=== PATIENT | male | born 1950 | race Caucasian/White ===

== ENCOUNTER 2016-08-05 19:16 | Inpatient (IN) | payer OTHER ==
[~2016-08-05] VITALS: Ht 175.3 cm; Wt 86.5 kg
[~2016-08-05 19:16] MED LIST: ALFU10TA2 PO; CARB0.5D16 EACH EYE; IBUP600 PO; LISI10TA PO; TIMO0.2525 LEFT EYE; XALA0.00 RIGHT EYE; XANA0.5T PO
[2016-08-05 19:22] VITALS: BP 167/86; PULSE 66; RESP 16; TEMP 97.5; O2SAT 98
[2016-08-05 19:54] VITALS: BP 168/92; PULSE 61; RESP 18; O2SAT 98
[2016-08-05 19:55] VITALS: O2SAT 98
[2016-08-05] MEDS ORDERED: SODIUM CHLOR 0.9% 1000 ML INJ 1,000 ML IV ONE (19:56)
[2016-08-05 20:03] VITALS: BP 140/78; PULSE 68; RESP 18; O2SAT 99
--- NOTE | 2016-08-05 20:06 | PD ---
HPI Chief Complaint: Stroke Alert Time Seen by Provider: 19:56 Travel History International Travel<30 days: No Contact w/Intl Traveler<30days: No Traveled to known affect area: No History of Present Illness HPI The patient is a 65 year old male who presents to the [facility] emergency department with a history of reportedly sitting and reading his Bible at approximate 5:45 PM when he noticed that he felt lightheaded with blurry vision mainly involving the right eye, right-sided numbness and tingling to his face and right-sided upper extremity aching associated with numbness. He denies having any one-sided weakness, however he does report having generalized weakness. He denies having any chest pain, chest pressure. He does report having shortness of breath. He reports that he does have a history of COPD. He denies any history of cardiac arrhythmia, myocardial infarction or congestive heart failure. He denies taking any blood thinners. He denies being on any aspirin daily. The patient does have a history of high blood pressure. The patient additionally reports that he has glaucoma and macular degeneration. He reports that his right eye vision is worse on the right compared to the left at baseline. The patient incidentally also reports that over the last 3-4 weeks he has had increasing difficulty urinating. The patient reports that he has a history of prostate cancer status post radiation therapy 3 years ago with difficulty urinating since then requiring him to self catheter 1 time per day. He reports that over the last 3-4 weeks he has not been able to introduce the catheter. He has been urinating frequently, therefore not sleeping well at night. The patient denies any recent fevers, cough, congestion, neck pain, abdominal pain, vomiting, diarrhea, double vision , difficulty with word finding ability, facial droop, or vertigo. The patient reports that the symptoms have improved since the onset. [facility] Past Medical History Narrative Medical The patient's past medical history is significant for hypertension and most sleep apnea, anxiety disorder, COPD, history of migraine headaches, history of prostate cancer status post radiation therapy 3 years ago, history of macular degeneration and glaucoma Arthritis: Yes Blood Disorders: No Anxiety: Yes Depression: Yes Cancer: Yes (PROSTATE) Cardiovascular Problems: Yes Chest Pain: Yes Diabetes: No Diminished Hearing: No Endocrine: No Gastrointestinal Disorders: Yes GERD: Yes Glaucoma: Yes Genitourinary: No Hepatitis: No Hiatal Hernia: No Hypertension: Yes Immune Disorder: No Implanted Vascular Access Dvce: Yes Medical other: Yes (macular degeneration) Musculoskeletal: No Neurologic: Yes Psychiatric: Yes (ANXIETY) Reproductive: No Respiratory: No Immunizations Current: Yes Migraines: Yes Radiation Therapy: Yes (PROSTATE) Thyroid Disease: No Past Surgical History Narrative Surgical The patient's past surgical history is significant for left leg ORIF, history of C-spine fusion, right hip replacement, cholecystectomy. Abdominal Surgery: Yes (MOE) Body Medical Devices: PLATE IN C SPINE, JULEE LLE Cholecystectomy: Yes Joint Replacement: Yes (RIGHT TOTAL HIP) Other Surgery: Yes Social History Alcohol Use: Yes (2 DRINKS/WK) Tobacco Use: Yes (1/2 PPD) Substance Use: No Allergies-Medications (Allergen,Severity, Reaction): Coded Allergies: Codeine (Verified Allergy, Severe, RASH/ITCHING, 08/05/16) Reported Meds & Prescriptions Reported Meds & Active Scripts Active Reported Timolol Maleate 0.25 % Brii 1 Drop LEFT EYE DAILY Lisinopril/Hctz 10 mg/12.5 mg 10 mg/12.5 mg Tab 1 Tab PO DAILY Tears Naturale (Artificial Tears) 15 Ml Soln 1 Drop EACH EYE DIRECTED Alfuzosin Hcl Er (Alfuzosin HCl) 10 Mg Tab 10 Mg PO DAILY Xalatan (Latanoprost) 0.005 % Brii 1 Drop RIGHT EYE HS Xanax 0.5 mg (Alprazolam) Alprazolam 0.5 mg Tab 1 Tab PO HS PRN Review of Systems Except as stated in HPI: all other systems reviewed are Neg General / Constitutional: No: Fever Eyes: No: Visual changes HENT: No: Headaches Cardiovascular: No: Chest Pain or Discomfort Respiratory: No: Shortness of Breath Gastrointestinal: No: Abdominal Pain Genitourinary: No: Dysuria Musculoskeletal: No: Pain Skin: No Rash Neurologic: No: Weakness Psychiatric: No: Depression Endocrine: No: Polydipsia Hematologic/Lymphatic: No: Easy Bruising Physical Exam Narrative General: The patient is a well-developed well-nourished male in no acute distress. Head and Neck exam: Head is normocephalic atraumatic. Eyes: EOMI, pupils are equal round and reactive to light. Nose: Midline septum with pink mucous membranes Mouth: Dentition unremarkable. Moist mucus membranes. Posterior oropharynx is not erythematous. No tonsillar hypertrophy. Uvula midline. Airway patent. Neck: No palpable lymphadenopathy. No nuchal rigidity. No thyromegaly. Cardiovascular: Regular rate and rhythm without murmurs, gallops, or rubs. No pulse deficit to the extremities and simultaneous auscultation and palpation of his radial artery. Lungs: Clear to auscultation bilaterally. No wheezes, rhonchi, or rales. Abdomen: Soft, without tenderness to palpation in all 4 quadrants of the abdomen. No guarding, rebound, or rigidity. Normal bowel sounds are audible. No tenderness on palpation of McBurney's point. Negative [place] sign. Extremities: No clubbing, cyanosis, or edema. 2+ pulses in all 4 extremities. Back: No spinous process tenderness to palpation. No costovertebral angle tenderness to palpation. Neurologic Exam: Cranial nerves II through XII are intact except for the patient's reported sensation of numbness to the right side of the face, and numbness to the right arm in a glove distribution. Strength is 5/5 in all 4 extremities. No dysdiadochokinesis. Good finger to nose and Heel to patel bilaterally. Skin Exam: No rash noted. Intact skin that is warm and dry. Data Data Last Documented VS Vital Signs Date Time Temp Pulse Resp B/P Pulse Ox O2 Delivery O2 Flow Rate FiO2 08/05/16 21:00 59 16 158/81 98 Room Air 08/05/16 19:55 21 08/05/16 19:22 97.5 Orders Diet Npo (08/06/16 Breakfast) Activity Bed Rest (08/05/16 ) Electrocardiogram (08/05/16 ) I-Stat Creatinine (08/05/16 19:56) I-Stat Profile (08/05/16 19:56) Prothrombin Time / Inr (Pt) (08/05/16 19:56) Act Partial Throm Time (Ptt) (08/05/16 19:56) Complete Blood Count With Diff (08/05/16 19:56) Fibrinogen (08/05/16 19:56) Creatine Kinase (Cpk) (08/05/16 19:56) Troponin I (08/05/16 19:56) Ua Includes Microscopic (08/05/16 19:56) Drug Screen, Random Urine (08/05/16 19:56) Type And Screen (08/05/16 19:56) Ct Brain W/O Iv Contrast(Rout) (08/05/16 ) Chest, Single Ap (08/05/16 ) Consult Neurology (08/05/16 ) Blood Glucose (08/05/16 19:56) Ecg Monitoring (08/05/16 19:56) Neuro Checks Q2HX12,Q4H (08/05/16 19:56) Nursing Bedside Swallow Assess .ONCE (08/05/16 19:56) Iv Access Insert/Monitor (08/05/16 19:56) NPO (08/05/16 19:56) Oximetry (08/05/16 19:56) Oxygen Administration (08/05/16 19:56) Sodium Chlor 0.9% 1000 Ml Inj (Ns 1000 M (08/05/16 19:56) Resp Oxygen Eren C Titrat 1-4 L (08/05/16 19:56) Cath For Specimen (08/05/16 19:56) (Hub Use Only)Inp Phy Cons/Ref (08/05/16 ) Mri Brain W/O Contrast (08/05/16 20:18) Mra Brain W/O Contrast (Cow) (08/05/16 20:18) Mra Carotids W Contrast (08/05/16 20:18) Aspirin (Aspirin) (08/05/16 21:30) Gadodiamide Pf Inj (Omniscan Pf Inj) (08/05/16 21:48) Admit Order (Ed Use Only) (08/05/16 22:16) Labs Laboratory Tests Test 08/05/16 08/05/16 20:00 21:45 White Blood Count 5.8 TH/MM3 Red Blood Count 4.42 MIL/MM3 Hemoglobin 13.9 GM/DL Bedside Hemoglobin 13.6 G/DL Hematocrit 38.6 % Bedside Hematocrit 40.0 % Mean Corpuscular Volume 87.4 FL Mean Corpuscular Hemoglobin 31.4 PG Mean Corpuscular Hemoglobin 35.9 % Concent Red Cell Distribution Width 12.4 % Platelet Count 188 TH/MM3 Mean Platelet Volume 7.8 FL Neutrophils (%) (Auto) 60.0 % Lymphocytes (%) (Auto) 29.5 % Monocytes (%) (Auto) 7.8 % Eosinophils (%) (Auto) 2.0 % Basophils (%) (Auto) 0.7 % Neutrophils # (Auto) 3.5 TH/MM3 Lymphocytes # (Auto) 1.7 TH/MM3 Monocytes # (Auto) 0.4 TH/MM3 Eosinophils # (Auto) 0.1 TH/MM3 Basophils # (Auto) 0.0 TH/MM3 CBC Comment DIFF FINAL Differential Comment Prothrombin Time 10.1 SEC Prothromb Time International 0.9 RATIO Ratio Activated Partial 25.1 SEC Thromboplast Time Fibrinogen 261 mg/dL Bedside Sodium 135 MMOL/L Bedside Potassium 3.9 MMOL/L Bedside Chloride 97 MMOL/L Bedside Blood Urea Nitrogen 19 MG/DL Bedside Creatinine 0.8 MG/DL Bedside Glucose 108 MG/DL Total Creatine Kinase 104 U/L Troponin I LESS THAN 0.02 NG/ML Blood Type A POSITIVE Antibody Screen NEGATIVE Urine Color LIGHT-YELLOW Urine Turbidity CLEAR Urine pH 7.0 Urine Specific [place] 1.007 Urine Protein NEG mg/dL Urine Glucose (UA) NEG mg/dL Urine Ketones NEG mg/dL Urine Occult Blood NEG Urine Nitrite NEG Urine Bilirubin NEG Urine Urobilinogen LESS THAN 2.0 MG/DL Urine Leukocyte Esterase NEG Urine RBC 1 /hpf Urine WBC 1 /hpf Urine Opiates Screen NEG Urine Barbiturates Screen NEG Urine Amphetamines Screen NEG Urine Benzodiazepines Screen NEG Urine Cocaine Screen NEG Urine Cannabinoids Screen NEG MDM Medical Screen Exam Complete: Yes Emergency Medical Condition: Yes Medical Record Reviewed: Yes EKG Prior to Arrival: Yes Differential Diagnosis TIA, versus CVA, versus peripheral neuropathy, versus paresthesias, versus anxiety disorder, versus intracranial mass Narrative Course During the course of the patients emergency department visit, the patients history, examination, and differential diagnosis were reviewed with the patient. The patient had IV access obtained and blood work sent for analysis. The patient was placed on a pr specialist with oximetry and blood pressure monitoring. An EKG was done on arrival. The patient's EKG shows a sinus rhythm with a first-degree AV block, heart rate is 62, QRS duration 95 ms, QTC [address] segment elevation or depression. The patient's blood sugar is 99. The patient was initially provided normal saline at 70 mL per hour. The patient 's head of the bed was placed flat. A CT scan of the brain was ordered. A stroke alert was called although at this time the patient reports that the symptoms are improving and at this point and the NIH score is a 1. The patients laboratory studies were reviewed and remarkable for i-STAT with creatinine reveals a sodium of 135, potassium 3.9, chloride 97, BUN 19, glucose 108, creatinine 0.8, hemoglobin 13.6. The patient was reexamined again when he came back from CT. The patient reports that his symptoms of numbness in the right side of the face are still present, as well as the numbness in the right lateral forearm. He reports that it seems to be less than on and the hand. Radiology studies were reviewed and remarkable for CT scan of the brain showed no acute abnormality. I spoke to again regarding this patient's case. He recommended that a stat MRI of the brain be ordered along with an MRA and an MRA of the neck. The patient's MRI of the brain was read as negative by the reading radiologist. I spoke to regarding this. He recommended that the patient receive an aspirin. Later the MR a of the carotids came back as showing soft tissue plaque with focal high grade stenosis involving the proximal right common carotid artery and there appears to be narrowing at the origin of the right vertebral artery. MRA of the brain showed 3 saccular aneurysms involving the distal right internal carotid artery. I spoke to the neurologist regarding these findings. He recommended that the patient additionally be given heparin 5000 units subcutaneous, and Plavix 75 mg by mouth 1. I reexamine the patient intermittently throughout his hospital course and the patient had no recurrence of symptoms. The patient was made aware of his findings. He is agreeable with the plan to proceed with admission. The patients results were discussed with the patient, including the plan of care. I explained that further testing and/ or monitoring is indicated based on the patients history, examination, and/ or laboratory findings. Therefore, I recommended admission for additional evaluation. The patient expressed understanding and was agreeable with this plan. The patient was admitted to the hospital in guarded condition and [facility] Stroke Alert NIHSS NIH Stroke Scale Result: 1 NIHSS Time Completed: 20:04 Physician Communication Physician Communication I spoke to Dr. Hoffman regarding this patient's case at approximately 8:[address] scan of the brain was negative. The patient's initial symptoms on arrival are an NIH score of 1 and the patient reports that since arriving some of the numbness in his right hand has improved. Therefore, Dr. Hoffman recommends an urgent MRI be done to further assess the patient's symptoms. He recommends serial exams and if the patient's symptoms again worsen, further discussion with him immediately. The patient's case was discussed with Dr. Hoffman who did agree to admit the patient for further evaluation and treatment at this time. Diagnosis Diagnosis: Primary Impression: TIA (transient ischemic attack) Qualified Code: G45.9 - Transient cerebral ischemia, unspecified type Additional Impressions: Carotid stenosis Qualified Code: I65.21 - Stenosis of right carotid artery Brain aneurysm Vertebral artery stenosis Qualified Code: I65.01 - Vertebral artery stenosis, right Admitting Physician Requests: it Anna Thompson MD Aug 05, 2016 20:06
[2016-08-05 20:09] LABS: AUTOMATED NEUTROPHIL # 3.5 TH/MM3 (1.8-7.7); BASOPHIL % 0.7 % (0.0-2.0); EOSINOPHIL # 0.1 TH/MM3 (0-0.4); HEMATOCRIT 38.6 % (39.0-51.0); HEMO FLAGS DIFF FINAL; I-STAT POTASSIUM 3.9 MMOL/L (3.5-4.9); I-STAT SODIUM 135 MMOL/L (138-146); LYMPH % 29.5 % (9.0-44.0); LYMPHOCYTE # 1.7 TH/MM3 (1.0-4.8); MEAN CELL VOLUME 87.4 FL (80.0-100.0); MEAN CORPUSCULAR HEMOGLOBIN 31.4 PG (27.0-34.0); MEAN CORPUSCULAR HGB CONC 35.9 % (32.0-36.0); MONO % 7.8 % (0.0-8.0); PLATELET COUNT 188 TH/MM3 (150-450); RED BLOOD COUNT 4.42 MIL/MM3 (4.50-5.90); RED CELL DISTRIBUTION WIDTH 12.4 % (11.6-17.2); WHITE BLOOD COUNT 5.8 TH/MM3 (4.0-11.0)
--- NOTE | 2016-08-05 20:13 | RADRPT ---
EXAM DATE/TIME: 08/05/2016 20:02 CORRECTION Corrected on: August 05, 2016; [facility] COMPARISON: No previous studies available for comparison. INDICATIONS : Right sided facial weakness. RADIATION DOSE: 50.07 CTDIvol (mGy) This report was called by Jennifer Thompson at 8: 20pm. MEDICAL HISTORY : Hypertension. Carcinoma, prostate. SURGICAL HISTORY : Fusion, cervical. ENCOUNTER: Initial ACUITY: 1 day PAIN SCALE: 0/10 LOCATION: cranial TECHNIQUE: Multiple contiguous axial images were obtained of the head. Using automated exposure control and adj ustment of the mA and/or kV according to patient size, radiation dose was kept as low as reasonably a chievable to obtain optimal diagnostic quality images. FINDINGS: CEREBRUM: The ventricles are normal for age. No evidence of midline shift, mass lesion, hemorrhage or acute in farction. No extra-axial fluid collections are seen. POSTERIOR FOSSA: The cerebellum and brainstem are intact. The 4th ventricle is midline. The cerebellopontine angle i s unremarkable. EXTRACRANIAL: The visualized portion of the orbits is intact. SKULL: The calvaria is intact. No evidence of skull fracture. CONCLUSION: No acute intracranial disease. Loi Rodriguez MD on August 05, 2016 at 20:10 Board Certified Radiologist. This report was verified electronically. Loi Rodriguez MD on August 05, 2016 at 20:26 Board Certified Radiologist. This report was verified electronically.
[2016-08-05 20:27] LABS: APTT (PATIENT) 25.1 SEC (24.3-30.1); INTERNATIONAL NORMALIZED RATIO 0.9 RATIO; PROTHROMBIN TIME - PATIENT 10.1 SEC (9.8-11.6)
[2016-08-05 20:33] LABS: CREATINE KINASE 104 U/L (39-308)
--- NOTE | 2016-08-05 20:44 | RADRPT ---
EXAM DATE/TIME: 08/05/2016 20:34 [facility] COMPARISON: No previous studies available for comparison. INDICATIONS : Stroke alert. MEDICAL HISTORY : Hypertension. Carcinoma, prostate SURGICAL HISTORY : Fusion, cervical ENCOUNTER: Initial ACUITY: 1 day PAIN SCORE: 0/10 LOCATION: Bilateral chest FINDINGS: A single view of the chest demonstrates the lungs to be symmetrically aerated without evidence of mas s, infiltrate or effusion. The cardiomediastinal contours are unremarkable. Osseous structures are intact. CONCLUSION: No acute disease. Loi Rodriguez MD on August 05, 2016 at 20:42 Board Certified Radiologist. This report was verified electronically.
[2016-08-05 21:00] VITALS: BP 158/81; PULSE 59; RESP 16; O2SAT 98
[2016-08-05] MEDS ORDERED: ASPIRIN 325 MG TAB PO ONE (21:30)
--- NOTE | 2016-08-05 21:38 | RADRPT ---
EXAM DATE/TIME: 08/05/2016 20:48 [facility] COMPARISON: CT BRAIN W/O CONTRAST, August 05, 2016, 20:02. INDICATIONS : Stroke. Stroke alert. MEDICAL HISTORY : Hypertension. Carcinoma, prostate. SURGICAL HISTORY : Fusion, cervical. Right hip. ENCOUNTER: Subsequent ACUITY: 1 day PAIN SCORE: 3/10 LOCATION: cranial TECHNIQUE: Multiplanar, multisequence MRI of the brain was performed without contrast. FINDINGS: CEREBRUM: The ventricles are normal for age. No evidence of midline shift, mass lesion, hemorrhage or acute in farction. No extraaxial fluid collections are seen. The pituitary gland and suprasellar cistern are normal in configuration. WHITE MATTER: No significant signal abnormalities are seen in the white matter. POSTERIOR FOSSA: The cerebellum and brainstem are intact. The 4th ventricle is midline. The cerebellopontine angle is unremarkable. The cerebellar tonsils are normal in position. DIFFUSION IMAGING: No focal areas of restricted diffusion are seen. No evidence of acute infarction. EXTRACRANIAL: The visualized portions of the orbits and paranasal sinuses are unremarkable. CONCLUSION: Unremarkable MRI brain. Loi Rodriguez MD on August 05, 2016 at 21:34 Board Certified Radiologist. This report was verified electronically.
--- NOTE | 2016-08-05 21:43 | RADRPT ---
EXAM DATE/TIME: 08/05/2016 20:48 [facility] COMPARISON: No previous studies available for comparison. INDICATIONS : Stroke. Right side numbness. MEDICAL HISTORY : Hypertension. Carcinoma, prostate. SURGICAL HISTORY : Fusion, cervical. Right hip. ENCOUNTER: Subsequent ACUITY: 1 day PAIN SCORE: 3/10 LOCATION: cranial Please note a normal MRA of the brain does not entirely exclude the possibility of a small aneurysm, nor the possibility of distal intracranial vessel disease. TECHNIQUE: 3D time of flight MRA was performed. Source images, multiplanar STS MIP, and 3D volume MIP reconstru ctions were reviewed. FINDINGS: There is excellent visualization of the major intracranial arteries out to the second-order branch ve ssels. There is evidence of saccular aneurysm along the carotid terminus measuring 4 x 3 mm. There a lso appears to be 2 other smaller aneurysms along the undersurface of distal carotid one measuring 3 x 2 mm and the other measuring 2 x 2 mm. In the left middle cerebral artery, anterior cerebral arteri es and posterior cerebral arteries are unremarkable. Anterior commuting artery seen.. CONCLUSION: 1. 3 saccular aneurysms involving the distal right internal carotid artery as described above. Loi Rodriguez MD on August 05, 2016 at 21:36 Board Certified Radiologist. This report was verified electronically.
[2016-08-05] MEDS ORDERED: GADODIAMIDE PF 287 MG/ML 20 ML VIAL (for RAD MRI) IV ONE (21:48)
[2016-08-05 21:59] LABS: BLOOD, URINE NEG (NEG); GLUCOSE,URINE NEG (NEG); KETONE, URINE NEG (NEG); NITRITE,URINE NEG (NEG); URINE COLOR LIGHT-YELLOW (YELLW/STRAW)
--- NOTE | 2016-08-05 22:02 | RADRPT ---
EXAM DATE/TIME: 08/05/2016 20:48 [facility] COMPARISON: No previous studies available for comparison. INDICATIONS : Stroke. Right side numbness. CONTRAST: 20 cc Omniscan (gadodiamide) IV MEDICAL HISTORY : Hypertension. Carcinoma, prostate. SURGICAL HISTORY : Fusion, cervical. Right hip. ENCOUNTER: Subsequent ACUITY: 1 day PAIN SCORE: 3/10 LOCATION: neck Percent stenosis is calculated using the diameter of the stenotic region over the diameter of the nor mal distal internal carotid artery. TECHNIQUE: Bolus infused MRA of the extracranial circulation was performed using a neurovascular coil. Post pro cessing was performed including rotating subvolume maximum intensity projections of each carotid allan ry, rotating full volume maximum intensity projections of both carotid arteries, sagittal and coronal sliding thin slab reformations of each carotid artery, and left oblique sliding thin slab reformatio n through the aortic arch to include the origin of the arch branch vessels. FINDINGS: AORTIC ARCH: There is a three vessel origin of the great vessels from the aorta. No evidence of ostial narrowing. RIGHT CAROTID: There is soft tissue plaque with focal high-grade stenosis involving the right common carotid artery. The carotid bulb has a normal configuration without ulceration or narrowing. The internal carotid a rtery lumen is smooth without stenosis. The external carotid artery is intact. LEFT CAROTID: The common carotid artery is intact. The carotid bulb has a normal configuration without ulceration or narrowing. The internal carotid artery lumen is smooth without stenosis. The external carotid ar nabil is intact. VERTEBRALS: Left vertebral artery is normal. There does appear to be focal high-grade stenosis involving the righ t vertebral artery at its origin. CONCLUSION: 1. Soft tissue plaque with focal high-grade stenosis involving the proximal right common carotid allan ry. 2. There appears to be narrowing at the origin of the right vertebral artery Loi Rodriguez MD on August 05, 2016 at 21:55 Board Certified Radiologist. This report was verified electronically.
[2016-08-05 22:03] LABS: AMPHETAMINE, URINE NEG (NEG); BARBITURATES, URINE NEG (NEG); COCAINE, URINE NEG (NEG)
[2016-08-05] MEDS ORDERED: HEPARIN SODIUM - SQ 10,000 UNITS/ML VIAL SQ ONE (22:30)
[2016-08-05] MEDS ORDERED: CLOPIDOGREL 75 MG TAB PO ONE (22:30)
[2016-08-05 23:49] VITALS: BP 151/74; PULSE 58; RESP 16; O2SAT 98
[2016-08-06] VITALS (8 sets, daily range): BP systolic 130–160; BP diastolic 67–77; PULSE 53–61; RESP 17–20; TEMP 96.9–97.6; O2SAT 94–96
[2016-08-06] MEDS ORDERED: LABETALOL HCL 100 MG/20 ML VIAL IV PRN (00:30)
[2016-08-06] MEDS ORDERED: ENALAPRILAT 1.25 MG/ML VIAL IV PRN (00:30)
[2016-08-06] MEDS ORDERED: SODIUM CHLORIDE 0.9% FLUSH 5 ML FLUSH IV FLUSH PRN ×2 (00:30→10:45)
[2016-08-06] MEDS ORDERED: GLUCAGON 1 MG/ML VIAL OTHER PRN ×2 (00:30→10:45)
[2016-08-06] MEDS ORDERED: DEXTROSE 50% IN WATER 50 ML VIAL(D50) IV PUSH PRN ×2 (00:30→10:45)
--- NOTE | 2016-08-06 00:53 | HHI.HP ---
HPI Service [facility] Primary Care Physician [facility] Admission Diagnosis TIA Diagnoses: Chief Complaint: Right facial numbness with visual change Travel History International Travel<30 Days: No Contact w/Intl Traveler <30 Da: No Traveled to Known Affected Are: No History of Present Illness Written by Franca Argueta, acting as scribe for Dr. Hoffman on 08/06/16 at 01: 26. This is a 65-year-old male patient with past medical history which includes prostate cancer 3-4 years ago treated with radiation, hypertension, macular degeneration and glaucoma. Patient reports between 5:30 and 5:45pm on 08/05/2016 will he was sitting reading his Bible he began to feel right fascial numbness with burning. Patient also experienced blurring of his vision in his right eye and numbness/burning sensation to his right upper extremity. Patient endorses feeling lightheaded with mild chest discomfort during this episode. Patient reports the visual change, right upper extremity numbness/burning and lightheadedness and chest discomfort have spontaneously resolved. Patient does have continued mild right facial numbness. Patient denies focal weakness and there is no focal weakness on evaluation. Patient denies any recent fevers, cough, congestion, neck pain, abdominal pain, vomiting, diarrhea, double vision, difficulty with word finding ability, facial droop, or vertigo. Patient denies history of diabetes mellitus blood glucose on arrival was 108 Review of Systems Except as stated in HPI: all other systems reviewed are Neg Past Family Social History Past Medical History prostate cancer 3-4 years ago treated with radiation, hypertension, macular degeneration and glaucoma Past Surgical History Left leg surgery with hardware placement, right hip replacement, neck surgery C5 -C6 area and T1 Reported Medications Timolol Maleate 0.25 % Brii 1 Drop LEFT EYE DAILY Lisinopril/Hctz 10 mg/12.5 mg 10 mg/12.5 mg Tab 1 Tab PO DAILY Tears Naturale (Artificial Tears) 15 Ml Soln 1 Drop EACH EYE DIRECTED Alfuzosin Hcl Er (Alfuzosin HCl) 10 Mg Tab 10 Mg PO DAILY Xalatan (Latanoprost) 0.005 % Brii 1 Drop RIGHT EYE HS Xanax 0.5 mg (Alprazolam) Alprazolam 0.5 mg Tab 1 Tab PO HS PRN Allergies: Coded Allergies: Codeine (Verified Allergy, Severe, RASH/ITCHING, 08/05/16) Active Ordered Medications Current Medications Medications (Trade) Dose Ordered Sig/Daisy Route Start Time Stop Time Status Last Admin (NS 1000 ml Inj) 1,000 ml @ 70 mls/hr [id number] ONCE IV 08/05/16 19:56 08/06/16 10:13 08/05/16 20:05 Family History Father at 57 secondary to NH and CVA Mother at 88 secondary CHF Does have an aunt with diabetes Social History Patient denies EtOH use tobacco use or illicit drug use at this time Patient reports he quit smoking and drinking alcohol 3 years ago Physical Exam Vital Signs Vital Signs Date Time Temp Pulse Resp B/P Pulse Ox O2 Delivery O2 Flow Rate FiO2 08/05/16 23:49 58 16 151/74 98 Room Air 08/05/16 21:00 59 16 158/81 98 Room Air 08/05/16 20:03 68 18 140/78 99 Room Air 08/05/16 19:55 98 21 08/05/16 19:55 98 08/05/16 19:54 61 18 168/92 98 Room Air 08/05/16 19:22 97.5 66 16 167/86 98 Physical Exam GENERAL: This is a well-nourished, well-developed patient, in no apparent distress at this time SKIN: No rashes, ecchymoses or lesions. Cool and dry. HEAD: Atraumatic. Normocephalic. No temporal or scalp tenderness. EYES: Pupils equal round and reactive. Extraocular motions intact. No scleral icterus. No injection or drainage. CARDIOVASCULAR: Regular rate and rhythm without murmurs, gallops, or rubs. RESPIRATORY: Clear to auscultation. Breath sounds equal bilaterally. No wheezes , rales, or rhonchi. GASTROINTESTINAL: Abdomen soft, non-tender, nondistended. No guarding. MUSCULOSKELETAL: Extremities without clubbing, cyanosis, or edema. No joint tenderness, effusion, or edema noted. No calf tenderness. Negative Homans sign bilaterally. NEUROLOGICAL: Awake and alert. Cranial nerves II through XII intact. Motor and sensory grossly within normal limits. Five out of 5 muscle strength in all muscle groups. Normal speech. Laboratory Laboratory Tests Test 08/05/16 08/05/16 20:00 21:45 White Blood Count 5.8 Red Blood Count 4.42 Hemoglobin 13.9 Bedside Hemoglobin 13.6 Hematocrit 38.6 Bedside Hematocrit 40.0 Mean Corpuscular Volume 87.4 Mean Corpuscular Hemoglobin 31.4 Mean Corpuscular Hemoglobin 35.9 Concent Red Cell Distribution Width 12.4 Platelet Count 188 Mean Platelet Volume 7.8 Neutrophils (%) (Auto) 60.0 Lymphocytes (%) (Auto) 29.5 Monocytes (%) (Auto) 7.8 Eosinophils (%) (Auto) 2.0 Basophils (%) (Auto) 0.7 Neutrophils # (Auto) 3.5 Lymphocytes # (Auto) 1.7 Monocytes # (Auto) 0.4 Eosinophils # (Auto) 0.1 Basophils # (Auto) 0.0 CBC Comment DIFF FINAL Differential Comment Prothrombin Time 10.1 Prothromb Time International 0.9 Ratio Activated Partial 25.1 Thromboplast Time Fibrinogen 261 Bedside Sodium 135 Bedside Potassium 3.9 Bedside Chloride 97 Bedside Blood Urea Nitrogen 19 Bedside Creatinine 0.8 Bedside Glucose 108 Total Creatine Kinase 104 Troponin I LESS THAN 0.02 Blood Type A POSITIVE Antibody Screen NEGATIVE Urine Color LIGHT-YELLOW Urine Turbidity CLEAR Urine pH 7.0 Urine Specific [place] 1.007 Urine Protein NEG Urine Glucose (UA) NEG Urine Ketones NEG Urine Occult Blood NEG Urine Nitrite NEG Urine Bilirubin NEG Urine Urobilinogen LESS THAN 2.0 Urine Leukocyte Esterase NEG Urine RBC 1 Urine WBC 1 Urine Opiates Screen NEG Urine Barbiturates Screen NEG Urine Amphetamines Screen NEG Urine Benzodiazepines Screen NEG Urine Cocaine Screen NEG Urine Cannabinoids Screen NEG Result Diagram: 08/05/161999 Imaging Last Impressions Neck Magnetic Resonance Angiography 08/05/162017 Signed Impressions: Service Date/Time: Friday, August 05, 2016 20:48 - CONCLUSION: 1. Soft tissue plaque with focal high-grade stenosis involving the proximal right common carotid artery. 2. There appears to be narrowing at the origin of the right vertebral artery Loi Rodriguez MD Head Magnetic Resonance Angiography 08/05/162017 Signed Impressions: Service Date/Time: Friday, August 05, 2016 20:48 - CONCLUSION: 1. 3 saccular aneurysms involving the distal right internal carotid artery as described above. Loi Rodriguez MD Brain MRI 08/05/162017 Signed Impressions: Service Date/Time: Friday, August 05, 2016 20:48 - CONCLUSION: Unremarkable MRI brain. Loi Rodriguez MD Head CT 08/05/16 Signed Impressions: Service Date/Time: Friday, August 05, 2016 20:02 - CONCLUSION: No acute intracranial disease. Loi Rodriguez MD Chest X-Ray 08/05/16 Signed Impressions: Service Date/Time: Friday, August 05, 2016 20:34 - CONCLUSION: No acute disease. Loi Rodriguez MD Assessment and Plan Problem List: (1) Right facial numbness ICD Code: R20.0 Status: Acute (2) Change in vision ICD Code: H53.9 Status: Acute (3) Brain aneurysm ICD Code: I67.1 Status: Acute (4) Carotid stenosis ICD Code: I65.29 Status: Acute Assessment and Plan This is a 65-year-old male patient with past medical history which includes prostate cancer 3-4 years ago treated with radiation, hypertension, macular degeneration and glaucoma. Patient reports between 5:30 and 5:45pm on 08/05/2016 will he was sitting reading his Bible he began to feel right fascial numbness with burning. Patient also experienced blurring of his vision in his right eye and numbness/burning sensation to his right upper extremity. Patient endorses feeling lightheaded during this episode. Patient reports the visual change, right upper extremity numbness/burning and lightheadedness have spontaneously resolved. Patient does have continued mild right facial numbness. Patient denies focal weakness and there is no focal weakness on evaluation. TIA versus CVA- acute Patient with right facial numbness, right upper extremity numbness, blurred vision Imaging reviewed by me and reveals: Neck MRA reveals 1. Soft tissue plaque with focal high-grade stenosis involving the proximal right common carotid artery. 2. There appears to be narrowing at the origin of the right vertebral artery Head MRA reveals 1. 3 saccular aneurysms involving the distal right internal carotid artery as described above. Brain MRI reveals Unremarkable MRI brain. Head CT reveals No acute intracranial disease. Serial neuro checks please notify M.D. if patient has any changes in neurological status-neurology Dr. Hoffman would like to be contacted immediately if patient has any neurological changes, HOB flat Patient nothing by mouth at this time Normal saline at 70 cc/h permissive HTN Consult neurology heparin 5000 units subQ and Plavix 75 mg by mouth given in ER per neurology recommendations- will continue heparin and plavix recommend discussing further antiplatelet/anticoagulation with neurology for further recommendations Speech consult Right carotid stenosis Neck MRA reveals 1. Soft tissue plaque with focal high-grade stenosis involving the proximal right common carotid artery. 2. There appears to be narrowing at the origin of the right vertebral artery Patient name may need further evaluation by vascular surgery regarding carotid stenosis chest discomfort initial EKG reviewed and reveals: serial troponin HTN hold oral antihypertensive at this point to allow permissive hypertension Labetalol 10 mg IV push as needed for blood pressure greater than 220/120 DVT prophylaxis with SCDs Discussed severe provider, nursing inpatient Physician Certification 2 Midnight Certification Type: Admission for Inpatient Services Order for Inpatient Services The services are ordered in accordance with Medicare regulations or non- Medicare payer requirements, as applicable. In the case of services not specified as inpatient-only, they are appropriately provided as inpatient services in accordance with the 2-midnight benchmark. Estimated LOS (days): 3 days is the estimated time the patient will need to remain in the hospital, assuming treatment plan goals are met and no additional complications. Post-Hospital Plan: Not yet determined Problem Qualifiers (1) Carotid stenosis: Qualified Code: I65.21 - Stenosis of right carotid artery Franca Argueta Aug 06, 2016 00:53 Isabela Hoffman MD Aug 06, 2016 21:11
[2016-08-06 03:16] LABS: CREATINE KINASE 92 U/L (39-308)
[2016-08-06] MEDS: HEPARIN SODIUM - SQ 10,000 UNITS/ML VIAL SQ SCH ×3 (05:24→20:50)
[2016-08-06] MEDS ORDERED: INSULIN ASPART SUPPLEMENTAL SCALE SQ SCH (07:00)
[2016-08-06] MEDS ORDERED: SODIUM CHLORIDE 0.9% FLUSH 5 ML FLUSH IV FLUSH SCH (09:00)
[2016-08-06] MEDS: CLOPIDOGREL 75 MG TAB PO SCH (09:50)
--- NOTE | 2016-08-06 10:33 | HHI.PR ---
Subjective Remarks f/u for right facial paraesthesia Patient stated right-sided facial procedure resolved. He denies any visual changes, focal neurological deficit, headaches. patient stated that he feels like he is at his baseline. Objective Vitals Vital Signs Date Time Temp Pulse Resp B/P Pulse Ox O2 Delivery O2 Flow Rate FiO2 08/06/16 08:00 96.9 58 17 132/67 94 08/06/16 05:33 97.6 57 18 133/77 95 08/06/16 02:09 97.0 55 18 130/73 96 08/05/16 23:49 58 16 151/74 98 Room Air 08/05/16 21:00 59 16 158/81 98 Room Air 08/05/16 20:03 68 18 140/78 99 Room Air 08/05/16 19:55 98 21 08/05/16 19:55 98 08/05/16 19:54 61 18 168/92 98 Room Air 08/05/16 19:22 97.5 66 16 167/86 98 I/O 08/05/16 08/05/16 08/05/16 08/06/16 08/06/16 08/06/16 07:00 15:00 23:00 07:00 15:00 23:00 Output Total 800 ml Balance -800 ml Output Urine Total 800 ml Result Diagram: 08/05/16 2000 Imaging Last Impressions Neck Magnetic Resonance Angiography 08/05/162017 Signed Impressions: Service Date/Time: Friday, August 05, 2016 20:48 - CONCLUSION: 1. Soft tissue plaque with focal high-grade stenosis involving the proximal right common carotid artery. 2. There appears to be narrowing at the origin of the right vertebral artery Loi Rodriguez MD Head Magnetic Resonance Angiography 08/05/162017 Signed Impressions: Service Date/Time: Friday, August 05, 2016 20:48 - CONCLUSION: 1. 3 saccular aneurysms involving the distal right internal carotid artery as described above. Loi Rodriguez MD Brain MRI 08/05/162017 Signed Impressions: Service Date/Time: Friday, August 05, 2016 20:48 - CONCLUSION: Unremarkable MRI brain. Loi Rodriguez MD Head CT 08/05/16 Signed Impressions: Service Date/Time: Friday, August 05, 2016 20:02 - CONCLUSION: No acute intracranial disease. Loi Rodriguez MD Chest X-Ray 08/05/16 0000 Signed Impressions: Service Date/Time: Friday, August 05, 2016 20:34 - CONCLUSION: No acute disease. Loi Rodriguez MD Objective Remarks GENERAL: in NAD SKIN: Warm and dry. HEAD: Normocephalic. EYES: No scleral icterus. No injection or drainage. NECK: Supple, trachea midline. No JVD or lymphadenopathy. CARDIOVASCULAR: Regular rate and rhythm without murmurs, gallops, or rubs. RESPIRATORY: Breath sounds equal bilaterally. No accessory muscle use. GASTROINTESTINAL: Abdomen soft, non-tender, nondistended. MUSCULOSKELETAL: No cyanosis, or edema. BACK: Nontender without obvious deformity. No CVA tenderness. Neuro: AAO X 3. CN 2-12 intact. 5/5 upper and lower ext strength. Sensation is intact. coordination. Medications and IVs Current Medications Sodium Chloride (NS 1000 ml Inj) 1,000 ml @ 70 mls/hr [id number] ONCE IV Last administered on 08/05/16 20:05; Start 08/05/16 at 19:56; Stop 08/06/16 at 10:13; Status DC Aspirin (Aspirin) 325 mg ONCE ONCE PO Last administered on 08/05/16 21:49; Start 08/05/16 at 21:30; Stop 08/05/16 at 21:31; Status DC Gadodiamide (Omniscan Pf Inj) 20 ml STK-MED ONCE IV Last administered on 21:48; Start 08/05/16 at 21:48; Stop 08/05/16 at 21:49; Status DC Heparin Sodium (Porcine) (Heparin Inj) 5,000 units ONCE ONCE SQ Last administered on 08/05/16 22:51; Start 08/05/16 at 22:30; Stop 08/05/16 at 22:31; Status DC Clopidogrel Bisulfate (Plavix) 75 mg ONCE ONCE PO Last administered on 22:51; Start 08/05/16 at 22:30; Stop 08/05/16 at 22:31; Status DC IV Flush (NS Flush) 2 ml BID IV FLUSH ; Start 08/06/16 at 09:00 IV Flush (NS Flush) 2 ml UNSCH PRN IV FLUSH FLUSH AFTER USING IV ACCESS; Start 08/06/16 at 00:30 Enalaprilat (Vasotec Inj) 1.25 mg Q4H PRN IV For SBP > 220 or DBP > 120; Start 08/06/16 at 00:30 Labetalol HCl (Trandate Inj) 10 mg Q2H PRN IV For SBP > 220 or DBP > 120; Start 08/06/16 at 00:30 Atorvastatin Calcium (Lipitor) 10 mg HS PO ; Start 08/06/16 at 21:00 Insulin Aspart (NovoLOG SUPPLEMENTAL SCALE) 1 ACHS SQ ; Start 08/06/16 at 07:00 Dextrose (D50w (Vial) Inj) 50 ml UNSCH PRN IV PUSH HYPOGLYCEMIA-SEE COMMENTS; Start 08/06/16 at 00:30 Glucagon (Glucagon Inj) 1 mg UNSCH PRN OTHER HYPOGLYCEMIA-SEE COMMENTS; Start 08/06/16 at 00:30 Heparin Sodium (Porcine) (Heparin Inj) 5,000 units Q8HR SQ Last administered on 08/06/16 05:24; Start 08/06/16 at 06:00 Clopidogrel Bisulfate (Plavix) 75 mg DAILY PO Last administered on 08/06/16 09: 50; Start 08/06/16 at 09:00 A/P Problem List: (1) Right facial numbness ICD Code: R20.0 Status: Acute (2) Change in vision ICD Code: H53.9 Status: Acute (3) Brain aneurysm ICD Code: I67.1 Status: Acute (4) Carotid stenosis ICD Code: I65.29 Status: Acute Assessment and Plan 65-year-old male with past medical history hypertension presented with right- sided facial paresthesia TIA -Asymptomatic at the moment. -CT scan of the head is negative. MR I of the head negative for any CVA. MRA of the head and neck showed s oft tissue plaque with focal high-grade stenosis involving the proximal right common carotid artery, 3 saccular aneurysms involving the distal right internal carotid artery as described above. -Patient was put on a statin. Pending lipid panel panel. Most likely will need to increase dosage but will wait for lipid panel. -Resume antihypertensive medication. -Patient was given a dose of aspirin and Plavix last night. Plavix was continued. d/w Dr. Boyd he stated that to continue aspirin and Plavix. Will restart aspirin 81 mg by mouth daily. Plavix. Right carotid stenosis -soft tissue plaque with focal high-grade stenosis involving the proximal right common carotid artery. -CTA of the neck ordered by Dr. Boyd. -We will consult vascular surgeon for further recommendations. Right common artery aneurysm -Asymptomatic. Hypertension -Resume home medication. DVT prophylaxis with SCDs Discharge Planning Patient will need further workup of his high-grade carotid stenosis. vascular surgeon also consulted. Problem Qualifiers (1) Carotid stenosis: Qualified Code: I65.21 - Stenosis of right carotid artery Mis Baeza MD Aug 06, 2016 10:33
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
[2016-08-06] MEDS: SODIUM CHLOR 0.9% 1000 ML INJ 1,000 ML IV SCH ×2 (11:44→20:53)
[2016-08-06] MEDS: INSULIN ASPART SUPPLEMENTAL SCALE SQ SCH ×3 (11:44→20:52)
--- NOTE | 2016-08-06 12:21 | PD.CONS ---
(Bassam Amezquita MD) HPI Consult Requested By Primary Care Physician [facility] (Bassam Amezquita MD) Service Neurosurgery Consult Requested By Dr. Jermaine Boyd Reason for Consult Aneurysm History of Present Illness Mr. Molina is a 65-year-old male developed acute numbness in the right face, arm and leg. He presented to the emergency department in a stroke alert was called. A stat MRI brain showed no acute infarcts. 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 Mr. Molina reports no previous history of aneurysms. His radiological studies did not show acute hemorrhages. Mr. Molina had underwent a previous cervical fusion with us years ago, he reports he continues to doing well. A neurosurgical evaluation was requested. (Eladia Trammell) Review of Systems Constitutional: DENIES: Fever, Chills Eyes: DENIES: Vision loss Ears, nose, mouth, throat: DENIES: Hearing loss Respiratory: DENIES: Cough, Hemoptysis Cardiovascular: DENIES: Chest pain, Palpitations Gastrointestinal: DENIES: Nausea, Vomiting Genitourinary: DENIES: Urinary incontinence Musculoskeletal: DENIES: Stiffness, Neck pain Neurologic: COMPLAINS OF: Paresthesias, DENIES: Seizures, Speech Problems Psychiatric: DENIES: Hallucinations (Eladia Trammell) Past Family Social History Allergies: Coded Allergies: Codeine (Verified Allergy, Severe, RASH/ITCHING, 08/05/16) Past Medical History Hypertension Macular degeneration Glaucoma Past Surgical History Cervical fusion Left tibia surgery Right hip surgery Reported Medications Reviewed in EMR Active Ordered Medications Current Medications Medications (Trade) Dose Ordered Sig/Daisy Route PRN Reason Start Time Stop Time Status Last Admin Dose Admin Enalaprilat (Vasotec Inj) 1.25 mg Q4H PRN IV For SBP > 220 or DBP > 120 08/06/16 00:30 Labetalol HCl (Trandate Inj) 10 mg Q2H PRN IV For SBP > 220 or DBP > 120 08/06/16 00:30 Atorvastatin Calcium (Lipitor) 10 mg HS PO 08/06/16 21:00 Heparin Sodium (Porcine) (Heparin Inj) 5,000 units Q8HR SQ 08/06/16 06:00 08/06/16 13:39 Clopidogrel Bisulfate (Plavix) 75 mg DAILY PO 08/06/16 09:00 08/06/16 09:50 Aspirin (Ecotrin Ec) 81 mg DAILY PO 08/06/16 12:00 08/06/16 12:32 IV Flush (NS Flush) 2 ml BID IV FLUSH 08/06/16 21:00 IV Flush 2 ml 2 ml UNSCH PRN IV FLUSH FLUSH AFTER USING IV ACCESS 08/06/16 10:45 Sodium Chloride (NS 1000 ml Inj) 1,000 ml @ 70 mls/hr [id number] IV 08/06/16 10:32 08/06/16 11:44 Insulin Aspart (NovoLOG SUPPLEMENTAL SCALE) 1 ACHS SQ 08/06/16 11:00 Dextrose (D50w (Vial) Inj) 50 ml UNSCH PRN IV PUSH HYPOGLYCEMIA-SEE COMMENTS 08/06/16 10:45 Glucagon (Glucagon Inj) 1 mg UNSCH PRN OTHER HYPOGLYCEMIA-SEE COMMENTS 08/06/16 10:45 Artificial Tears (Tears Naturale Opth Soln) 1 drop BID EACH EYE 08/06/16 21:00 Latanoprost (Xalatan 0.005% Opth Soln) 1 drop HS RIGHT EYE 08/06/16 21:00 Timolol Maleate (Timoptic 0.25% Opth Soln) 1 drop DAILY LEFT EYE 08/07/16 09:00 Lisinopril (Prinivil) 10 mg DAILY PO 08/07/16 09:00 Hydrochlorothiazide (Hydrodiuril) 12.5 mg DAILY PO 08/07/16 09:00 (Eladia Trammell) Physical Exam Vital Signs Vital Signs Date Time Temp Pulse Resp B/P Pulse Ox O2 Delivery O2 Flow Rate FiO2 08/06/16 12:00 97.1 56 17 145/74 95 08/06/16 09:30 94 21 08/06/16 08:00 96.9 58 17 132/67 94 08/06/16 05:33 97.6 57 18 133/77 95 08/06/16 02:09 97.0 55 18 130/73 96 08/05/16 23:49 58 16 151/74 98 Room Air 08/05/16 21:00 59 16 158/81 98 Room Air 08/05/16 20:03 68 18 140/78 99 Room Air 08/05/16 19:55 98 21 08/05/16 19:55 98 08/05/16 19:54 61 18 168/92 98 Room Air 08/05/16 19:22 97.5 66 16 167/86 98 Laboratory Laboratory Tests Test 08/05/16 08/05/16 08/06/16 08/06/16 20:00 21:45 02:15 08:30 White Blood Count 5.8 Red Blood Count 4.42 Hemoglobin 13.9 Bedside Hemoglobin 13.6 Hematocrit 38.6 Bedside Hematocrit 40.0 Mean Corpuscular Volume 87.4 Mean Corpuscular Hemoglobin 31.4 Mean Corpuscular Hemoglobin 35.9 Concent Red Cell Distribution Width 12.4 Platelet Count 188 Mean Platelet Volume 7.8 Neutrophils (%) (Auto) 60.0 Lymphocytes (%) (Auto) 29.5 Monocytes (%) (Auto) 7.8 Eosinophils (%) (Auto) 2.0 Basophils (%) (Auto) 0.7 Neutrophils # (Auto) 3.5 Lymphocytes # (Auto) 1.7 Monocytes # (Auto) 0.4 Eosinophils # (Auto) 0.1 Basophils # (Auto) 0.0 CBC Comment DIFF FINAL Differential Comment Prothrombin Time 10.1 Prothromb Time International 0.9 Ratio Activated Partial 25.1 Thromboplast Time Fibrinogen 261 Bedside Sodium 135 Bedside Potassium 3.9 Bedside Chloride 97 Bedside Blood Urea Nitrogen 19 Bedside Creatinine 0.8 Bedside Glucose 108 Total Creatine Kinase 104 92 91 Troponin I LESS THAN 0.02 0.02 0.02 Blood Type A POSITIVE Antibody Screen NEGATIVE Urine Color LIGHT-YELLOW Urine Turbidity CLEAR Urine pH 7.0 Urine Specific [place] 1.007 Urine Protein NEG Urine Glucose (UA) NEG Urine Ketones NEG Urine Occult Blood NEG Urine Nitrite NEG Urine Bilirubin NEG Urine Urobilinogen LESS THAN 2.0 Urine Leukocyte Esterase NEG Urine RBC 1 Urine WBC 1 Urine Opiates Screen NEG Urine Barbiturates Screen NEG Urine Amphetamines Screen NEG Urine Benzodiazepines Screen NEG Urine Cocaine Screen NEG Urine Cannabinoids Screen NEG (Bassam Amezquita MD) Result Diagram: 08/05/161999 Imaging Last Impressions Neck Magnetic Resonance Angiography 08/05/162017 Signed Impressions: Service Date/Time: Friday, August 05, 2016 20:48 - CONCLUSION: 1. Soft tissue plaque with focal high-grade stenosis involving the proximal right common carotid artery. 2. There appears to be narrowing at the origin of the right vertebral artery Loi Rodriguez MD Head Magnetic Resonance Angiography 08/05/162017 Signed Impressions: Service Date/Time: Friday, August 05, 2016 20:48 - CONCLUSION: 1. 3 saccular aneurysms involving the distal right internal carotid artery as described above. Loi Rodriguez MD Brain MRI 08/05/162017 Signed Impressions: Service Date/Time: Friday, August 05, 2016 20:48 - CONCLUSION: Unremarkable MRI brain. Loi Rodriguez MD Head CT 08/05/16 Signed Impressions: Service Date/Time: Friday, August 05, 2016 20:02 - CONCLUSION: No acute intracranial disease. Loi Rodriguez MD Chest X-Ray 08/05/16 Signed Impressions: Service Date/Time: Friday, August 05, 2016 20:34 - CONCLUSION: No acute disease. Loi Rodriguez MD (Eladia Trammell) Attending Statement Neuro. I have reviewed his clinical and radiological findings. Start neuro checks in a serial fashion. Recommend CTA brain and neck. Further recommendations to follow. TIA with resolving symptoms. High-grade stenosis of the right common carotid artery which is symptomatic. Plavix and aspirin therapy. check echocardiogram. Monitor cardiac telemetry, rule out atrial fibrillation. follow-up on the lipid panel. PT and OT evaluation Nutrition. Oral diet Renal. monitor closely urine output, BUN and creatinine Endocrine. Monitor serial Acu checks and SSI as needed in detail ID monitor for signs of infection Protonix for stress ulcer prophylaxis Otto hose and SCD's for DVT prophylaxis The exam, history, and the medical decision-making described in the above note were completed with the assistance of the mid-level provider. I reviewed and agree with the findings presented. I attest that I had a [id number] encounter with the patient on the same day, and personally performed and documented my assessment and findings in the medical record (Bassam Amezquita MD) Bassam Amezquita MD Aug 06, 2016 12:21 Eladia Trammell Aug 06, 2016 14:42
[2016-08-06] MEDS: ASPIRIN EC 81 MG TABEC PO SCH (12:32)
--- NOTE | 2016-08-06 12:37 | PD.VS.CON ---
History of Present Illness Chief Complaint: Right sided facial numbness with right eye (visual changes) "blurred vision". Right sided weakness Symptom onset yesterday evening around 1730 lasting 15-20 minutes. No new events reported since initial episode yesterday afternoon Consult Requested by: Dr. Singer History of Present Illness Mr. Molina is a 65-year-old male patient with past medical history of prostate cancer 3-4 years ago treated with radiation, HTN, macular degeneration and glaucoma. Patient reports between 5:30 and 5:45pm on 08/05/2016 while he was driving he suddenly felt his right side become numb with right eye blurriness. Pt then stated he drove to the ED to seek immediate attention. Patient also c /o feeling lightheaded during this episode. Patient reports the visual change , right upper extremity numbness and lightheadedness spontaneously resolved 20 minutes after initial event. Patient denies any new events. Pt is w/o any neurological deficits during examination (Megan Sargent) Past/Family/Social History Past Medical History Prostate Cancer 3-4 years ago treated with radiation Hypertension Macular Degeneration Glaucoma Past Surgical History Left tibial fx repair with hardware placement (MCA) Right hip replacement Neck surgery C5-C6 area and T1 (MCA) Tonsillectomy Cholecystectomy Social History Negative EtOH use Negative tobacco use or illicit drug usage Patient reports he quit smoking and drinking alcohol a few years ago Family History Father at 57 secondary to [place] and CVA Mother at 88 secondary CHF (Megan Sargent) Home Medications Active Scripts Atorvastatin (Lipitor)40 Mg Tab40 Mg PO HS #30 TAB Ref 0 Prov:Mis Baeza MD 08/07/16 Clopidogrel (Plavix)75 Mg Tab75 Mg PO DAILY #30 TAB Ref 0 Prov:Mis Baeza MD 08/07/[address] (Adult Aspirin EC Low Strength)81 Mg Tabec81 Mg PO DAILY #30 TAB Ref 0 Prov:Mis Baeza MD 08/07/16 Reported Medications Timolol Maleate (Ophth) (Timolol Maleate)0.25 % Sol1 Drop LEFT EYE DAILY 09/17/15 Lisinopril/Hctz 10 mg/12.5 mg 10 mg/12.5 mg Tab1 Tab PO DAILY 09/17/15 Artificial Tears (Tears Naturale)15 Ml Soln1 Drop EACH EYE DIRECTED 7/18/16 Alfuzosin Hcl (Alfuzosin Hcl Er)10 Mg Tab10 Mg PO DAILY 09/17/15 Latanoprost (Xalatan)0.005 % Sol1 Drop RIGHT EYE HS 04/27/15 Alprazolam (Xanax 0.5 mg)Alprazolam 0.5 mg Tab1 Tab PO HS PRN (ANXIETY) 04/05/14 Discontinued Reported Medications Ibuprofen (Motrin 600 Mg Tab)600 Mg Hzv530 Mg PO DAILY PRN (PAIN SCALE 1 TO 10) 09/17/15 Coded Allergies: Codeine (Verified Allergy, Severe, RASH/ITCHING, 08/05/16) Review of Systems Except as stated in HPI: all other systems reviewed are Neg (Megan Sargent) Physical Exam Vitals/I&O Date Time Temp Pulse Resp B/P Pulse Ox O2 Delivery O2 Flow Rate FiO2 08/06/16 09:30 94 21 08/06/16 08:00 96.9 58 17 132/67 94 08/06/16 05:33 97.6 57 18 133/77 95 08/06/16 02:09 97.0 55 18 130/73 96 08/05/16 23:49 58 16 151/74 98 Room Air 08/05/16 21:00 59 16 158/81 98 Room Air 08/05/16 20:03 68 18 140/78 99 Room Air 08/05/16 19:55 98 21 08/05/16 19:55 98 08/05/16 19:54 61 18 168/92 98 Room Air 08/05/16 19:22 97.5 66 16 167/86 98 Neuro: A&OX3 GCS15 CN 2-12 intact Neck: No JVD distention Mild carotid bruit noted right side Heart: RRR w/o m/g/r +S1,S2 Lungs: CTA bilat Abdomen: S/NT Vascular: + Bilat palpable radial pulses Extremities: UE 5/5 strength LE 5/5 strength (Megan Sargent) Laboratory Tests Test 08/05/16 08/05/16 08/06/16 08/06/16 20:00 21:45 02:15 08:30 White Blood Count 5.8 Red Blood Count 4.42 Hemoglobin 13.9 Bedside Hemoglobin 13.6 Hematocrit 38.6 Bedside Hematocrit 40.0 Mean Corpuscular Volume 87.4 Mean Corpuscular Hemoglobin 31.4 Mean Corpuscular Hemoglobin 35.9 Concent Red Cell Distribution Width 12.4 Platelet Count 188 Mean Platelet Volume 7.8 Neutrophils (%) (Auto) 60.0 Lymphocytes (%) (Auto) 29.5 Monocytes (%) (Auto) 7.8 Eosinophils (%) (Auto) 2.0 Basophils (%) (Auto) 0.7 Neutrophils # (Auto) 3.5 Lymphocytes # (Auto) 1.7 Monocytes # (Auto) 0.4 Eosinophils # (Auto) 0.1 Basophils # (Auto) 0.0 CBC Comment DIFF FINAL Differential Comment Prothrombin Time 10.1 Prothromb Time International 0.9 Ratio Activated Partial 25.1 Thromboplast Time Fibrinogen 261 Bedside Sodium 135 Bedside Potassium 3.9 Bedside Chloride 97 Bedside Blood Urea Nitrogen 19 Bedside Creatinine 0.8 Bedside Glucose 108 Total Creatine Kinase 104 92 91 Troponin I LESS THAN 0.02 0.02 0.02 Blood Type A POSITIVE Antibody Screen NEGATIVE Urine Color LIGHT-YELLOW Urine Turbidity CLEAR Urine pH 7.0 Urine Specific [place] 1.007 Urine Protein NEG Urine Glucose (UA) NEG Urine Ketones NEG Urine Occult Blood NEG Urine Nitrite NEG Urine Bilirubin NEG Urine Urobilinogen LESS THAN 2.0 Urine Leukocyte Esterase NEG Urine RBC 1 Urine WBC 1 Urine Opiates Screen NEG Urine Barbiturates Screen NEG Urine Amphetamines Screen NEG Urine Benzodiazepines Screen NEG Urine Cocaine Screen NEG Urine Cannabinoids Screen NEG Last 48 hours Impressions Neck Magnetic Resonance Angiography 08/05/162017 Signed Impressions: Service Date/Time: Friday, August 05, 2016 20:48 - CONCLUSION: 1. Soft tissue plaque with focal high-grade stenosis involving the proximal right common carotid artery. 2. There appears to be narrowing at the origin of the right vertebral artery Loi Rodriguez MD Head Magnetic Resonance Angiography 08/05/162017 Signed Impressions: Service Date/Time: Friday, August 05, 2016 20:48 - CONCLUSION: 1. 3 saccular aneurysms involving the distal right internal carotid artery as described above. Loi Rodriguez MD Brain MRI 08/05/162017 Signed Impressions: Service Date/Time: Friday, August 05, 2016 20:48 - CONCLUSION: Unremarkable MRI brain. Loi Rodriguez MD Head CT 08/05/16 0000 Signed Impressions: Service Date/Time: Friday, August 05, 2016 20:02 - CONCLUSION: No acute intracranial disease. Loi Rodriguez MD Chest X-Ray 08/05/16 0000 Signed Impressions: Service Date/Time: Friday, August 05, 2016 20:34 - CONCLUSION: No acute disease. Loi Rodriguez MD (Megan Sargent) Assessment and Plan Assessment: (1) Carotid stenosis Status: Acute Plan Plan Discussed w/ patient medical management of carotid artery disease Recommended ASA and or Plavix, statin therapy and antihypertensive management Pending CTA neck results will determine next plan of action Megan CARBAJAL [facility] [phone] (Megan Sargent) Plan Pt with potentially symptomatic carotid lesion manifesting as R eye visual changes and R facial numbness. MRA suggestive of CCA lesion. I recommend CTA of the neck and will potentially intervene based on that. Needs statin/ASA. Will follow closely. Henrry Miranda MD FACS internet merchant [facility] [phone] (Henrry Miranda MD) Problem Qualifiers (1) Carotid stenosis: Qualified Code: I65.21 - Stenosis of right carotid artery Megan Sargent Aug 06, 2016 12:37 Henrry Miranda MD Aug 06, 2016 19:32
--- NOTE | 2016-08-06 16:53 | ECHRPT ---
Indication: CVA/TIA CONCLUSIONS Normal left ventricular size. Wall thickness is normal. Normal LV systolic function with estimated EF of 65%. No regional wall motion abnormalities are present. The right ventricular size is normal. The right ventricular systoilc function is normal. BP: 151 / 74 HR: 58 Rhythm: MEASUREMENTS (Male / Female) Normal Values Technical Quality: FINDINGS Left Ventricle Normal left ventricular size. Wall thickness is normal. The left ventricular systolic function is normal with an estimated ejection fraction in the range of 65%. No regional wall motion abnormalities are present. Right Ventricle Normal right ventricular size and systolic function. The right ventricular size is normal. The right ventricular systoilc function is normal. The right ventricular wall thickness is normal. Left Atrium The left atrial size is normal. The left atrial pressure appears to be normal. Right Atrium The right atrial size is normal. Atrial Septum Normal atrial septal thickness without atrial level shunting by limited color doppler interrogation. Aorta The aortic root and proximal ascending aorta are normal in size on limited imaging. Mitral Valve Structurally normal mitral valve. No mitral valve stenosis or regurgitation. Aortic Valve Trileaflet aortic valve. No aortic valve stenosis or regurgitation. Tricuspid Valve Structurally normal tricuspid valve. No tricuspid valve stenosis or regurgitation. Normal estimated pulmonary pressures. Pulmonary Valve The pulmonary valve is not well visualized. Vessels The inferior vena cava is normal in size. Pericardium No pericardial effusion. Lalo Beltran MD, FACC Edited by: [employer] Tower [employer] (Electronically Signed) Final Date:06 August 2016 16:52 Amended: 07 August 2016 13:24 MTDD
[2016-08-06 17:01] LABS: CREATINE KINASE 90 U/L (39-308)
[2016-08-06 17:32] LABS: HEMOGLOBIN A1b 1.5 %; HEMOGLOBIN Ao 86.4 %; HEMOGLOBIN LA1C 1.6 %; HEMOGLOBIN P3 3.2 %
--- NOTE | 2016-08-06 18:21 | EKG ---
Date Performed: 08/05/2016 Time Performed: 19:50:06 PTAGE: 65 years EKG: Sinus rhythm WITH FIRST DEGREE AV BLOCK ABNORMAL ECG PREVIOUS TRACING : 04/12/2013 12.38 Compared to prior tracing no significant change DOCTOR: Thuan Zuñiga Interpretating Date/Time 08/06/2016 18:20:37
[2016-08-06 19:55] LABS: HEMOGLOBIN A1b 1.5 %; HEMOGLOBIN Ao 86.2 %; HEMOGLOBIN LA1C 1.9 %; HEMOGLOBIN P3 3.3 %
[2016-08-06] MEDS ORDERED: IOHEXOL 350 MG/ML 10 ML VIAL (for RAD DIAG) IV ONE (20:32)
[2016-08-06] MEDS: ARTIFICIAL TEARS OPTH SOLN 15 ML BTL EACH EYE SCH (20:49)
[2016-08-06] MEDS: SODIUM CHLORIDE 0.9% FLUSH 5 ML FLUSH IV FLUSH SCH (20:53)
[2016-08-06] MEDS ORDERED: LATANOPROST 0.005% OPHT SOLN 2.5 ML BTL RIGHT EYE SCH (21:00)
[2016-08-06] MEDS ORDERED: ATORVASTATIN 10 MG TAB PO SCH (21:00)
--- NOTE | 2016-08-06 23:02 | RADRPT ---
EXAM DATE/TIME: 08/06/2016 20:09 [place] COMPARISON: No previous studies available for comparison. INDICATIONS : Evaluate for right carotid aneurysm. IV CONTRAST: 50 cc Omnipaque 350 (iohexol) IV RADIATION DOSE: 16.21 CTDIvol (mGy) ; Combined studies MEDICAL HISTORY : Hypertension. Carcinoma, prostate. Cardiovascular disease SURGICAL HISTORY : Cholecystectomy. Fusion, lumbar. ENCOUNTER: Initial ACUITY: 1 day PAIN SCALE: 2/10 LOCATION: Bilateral cranial Elevated flow velocities and ICA/CCA ratios have been found to correlate with increased degrees of vessel stenosis, calculated as percentage of diameter relative to a normal segment of distal ICA/CCA. TECHNIQUE: Volumetric scanning was performed using a multirow detector CT scanner. The data was post processed with a variety of visualization algorithms including full-volume maximum intensity projection, multip lanar sliding thin-slab reformation, curved-planar reformation, and surface-rendering techniques. Us ing automated exposure control and adjustment of the mA and/or kV according to patient size, radiatio n dose was kept as low as reasonably achievable to obtain optimal diagnostic quality images. FINDINGS: AORTIC ARCH: There is a three-vessel origin of the great vessels from the aorta. No evidence of ostial narrowing. RIGHT CAROTID: The common carotid artery is intact. The narrowing on the MRA is artifactual. The carotid bulb has a normal configuration without ulceration or narrowing. The internal carotid artery lumen is smooth wi thout stenosis. There is some eccentric calcified plaque. The external carotid artery is intact. LEFT CAROTID: The common carotid artery is intact. The carotid bulb has a normal configuration without ulceration or narrowing. The internal carotid artery lumen is smooth without stenosis. The external carotid ar nabil is intact. VERTEBRALS: The vertebral arteries have a symmetric diameter. 50% focal narrowing involving the origin of the lef t vertebral artery and the right vertebral artery CONCLUSION: The common carotid artery narrowing seen on the MRA is clearly artifactual. There is atherosclerotic disease but no two-dimensional stenosis is identified. There is a narrowing of the origin of both ve rtebral arteries. Roni Walker MD on August 06, 2016 at 22:58 Board Certified Radiologist. This report was verified electronically.
[2016-08-07] VITALS: BP 139/68; PULSE 55; RESP 20; TEMP 97.1; O2SAT 98
[2016-08-07 04:00] VITALS: BP 141/69; PULSE 52; RESP 18; TEMP 97; O2SAT 96
[2016-08-07] MEDS: INSULIN ASPART SUPPLEMENTAL SCALE SQ SCH ×2 (06:10→10:45)
[2016-08-07] MEDS: HEPARIN SODIUM - SQ 10,000 UNITS/ML VIAL SQ SCH ×2 (06:11→12:20)
--- NOTE | 2016-08-07 07:03 | PD.VS.PN ---
Subjective Subjective/Hospital Course Pt feels well this morning, no more neuro events. CTA reviewed - as suspected, MR lesion in R CCA artifact. CTA shows CCA and ICA without HD significant stenosis. Objective Vitals/I&O Date Time Temp Pulse Resp B/P Pulse Ox O2 Delivery O2 Flow Rate FiO2 08/07/16 04:00 97.0 52 18 141/69 96 08/07/16 00:00 97.1 55 20 139/68 98 08/06/16 20:10 95 21 08/06/16 20:00 97.4 61 20 160/75 94 08/06/16 20:00 53 08/06/16 16:00 96.9 58 17 131/71 95 08/06/16 12:00 97.1 56 17 145/74 95 08/06/16 09:30 94 21 08/06/16 08:00 96.9 58 17 132/67 94 08/07/16 08/07/16 08/07/16 06:59 14:59 22:59 Intake Total 683 ml Balance 683 ml Physical Exam Neuro intact, no focal deficit Laboratory Laboratory Tests Test 08/06/16 08/06/16 08:30 15:52 Total Creatine Kinase 91 90 Troponin I 0.02 0.02 Hemoglobin A1c 5.6 Imaging Last 48 hours Impressions Neck CTA 08/06/16 0000 Signed Impressions: Service Date/Time: Saturday, August 06, 2016 20:09 - CONCLUSION: The common carotid artery narrowing seen on the MRA is clearly artifactual. There is atherosclerotic disease but no two-dimensional stenosis is identified. There is a narrowing of the origin of both vertebral arteries. Roni Walker MD Neck Magnetic Resonance Angiography 08/05/162017 Signed Impressions: Service Date/Time: Friday, August 05, 2016 20:48 - CONCLUSION: 1. Soft tissue plaque with focal high-grade stenosis involving the proximal right common carotid artery. 2. There appears to be narrowing at the origin of the right vertebral artery Loi Rodriguez MD Head Magnetic Resonance Angiography 08/05/162017 Signed Impressions: Service Date/Time: Friday, August 05, 2016 20:48 - CONCLUSION: 1. 3 saccular aneurysms involving the distal right internal carotid artery as described above. Loi Rodriguez MD Brain MRI 08/05/162017 Signed Impressions: Service Date/Time: Friday, August 05, 2016 20:48 - CONCLUSION: Unremarkable MRI brain. Loi Rodriguez MD Assessment and Plan Assessment: (1) Carotid stenosis Status: Acute Plan No carotid lesions identified. Needs atherosclerotic risk factor modification and medical therapy. I recommend ASA daily and higher dose statin than he is currently on, but defer to PCP. No additional carotid w/u needed. Please call with any questions. Mr. Molina has my office numbers if he needs anything. Henrry Miranda MD FACS head rose grower [facility] [phone] Problem Qualifiers (1) Carotid stenosis: Qualified Code: I65.21 - Stenosis of right carotid artery Henrry Miranda MD Aug 07, 2016 07:03
[2016-08-07 08:00] VITALS: BP 160/80; PULSE 54; RESP 17; TEMP 96.6; O2SAT 98
[2016-08-07 08:05] VITALS: PULSE 54
[2016-08-07] MEDS: ASPIRIN EC 81 MG TABEC PO SCH (08:12)
[2016-08-07] MEDS: CLOPIDOGREL 75 MG TAB PO SCH (08:14)
[2016-08-07] MEDS: SODIUM CHLORIDE 0.9% FLUSH 5 ML FLUSH IV FLUSH SCH (08:15)
[2016-08-07] MEDS: ARTIFICIAL TEARS OPTH SOLN 15 ML BTL EACH EYE SCH (08:15)
[2016-08-07 08:20] LABS: HDL CHOLESTEROL 48.4 MG/DL (40.0-60.0)
[2016-08-07] MEDS ORDERED: HCTZ PO SCH (09:00)
[2016-08-07] MEDS ORDERED: LISINOPRIL 5 MG TAB PO SCH (09:00)
[2016-08-07] MEDS ORDERED: LISINOPRIL PO SCH (09:00)
[2016-08-07] MEDS ORDERED: HYDROCHLOROTHIAZIDE 25 MG TAB PO SCH (09:00)
[2016-08-07] MEDS ORDERED: TIMOLOL MALEATE 0.25% OPHT SOLN 5 ML BTL LEFT EYE SCH (09:00)
--- NOTE | 2016-08-07 09:18 | RADRPT ---
EXAM DATE/TIME: 08/06/2016 20:09 [place] COMPARISON: CT BRAIN W/O CONTRAST, August 05, 2016, 20:02. INDICATIONS : Evaluate for right carotid aneurysm. IV CONTRAST: 50 cc Omnipaque 350 (iohexol) IV RADIATION DOSE: 16.21 CTDIvol (mGy) MEDICAL HISTORY : Hypertension. Cardiovascular disease Carcinoma, prostate. SURGICAL HISTORY : Cholecystectomy. Fusion, lumbar. ENCOUNTER: Initial ACUITY: 1 day PAIN SCALE: 2/10 LOCATION: Left neck region. TECHNIQUE: Volumetric scanning was performed using a multi-row detector CT scanner. The data was post processed with a variety of visualization algorithms including full volume maximum intensity projection, multi -planar sliding thin slab reformation, curved planar reformation, and surface rendering techniques. Using automated exposure control and adjustment of the mA and/or kV according to patient size, radiat ion dose was kept as low as reasonably achievable to obtain optimal diagnostic quality images. FINDINGS: There is normal branching of the great vessels from the arch. The origins the great vessels are widel y patent. There is mild atherosclerotic plaquing. Right carotid: The common carotid is widely patent throughout its course. There is mild atherosclerotic plaquing at the bifurcation. No hemodynamically significant stenosis is evident. The internal carotid is widely p atent. Left carotid: The left common carotid demonstrates a mild atherosclerotic plaquing. There is mild plaquing at the b ifurcation. No hemodynamically significant stenosis is seen. Vertebral circulation: Both vertebral arteries are widely patent. Intracranial circulation: The examination demonstrates 2 aneurysms arising from the supraclinoid carotid. The first is at the l evel of the cavernous sinus and measures 3 mm x 3 mm. This is a wide necked aneurysm which is directe d medially. The second arises from the carotid T. and measures 3 mm x 4 mm. This is a wide neck aneur ysm which is directed superiorly. The remainder of anterior and middle cerebral circulation is widely patent. No other aneurysms are se en. The basilar is widely patent. The posterior cerebral circulation is normal in appearance. CONCLUSION: 1. 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 2. 2.9 x 3.6 mm aneurysm arising from the carotid T. on the right. 3. Mild atherosclerotic plaque involving the carotid bifurcations. Arnaldo Messer MD on August 07, 2016 at 8:22 Board Certified Radiologist. This report was verified electronically.
[2016-08-07] MEDS ORDERED: ASPI-99 PO (10:14)
[2016-08-07] MEDS ORDERED: LIPI40TA PO (10:14)
[2016-08-07] MEDS ORDERED: PLAV75TA29 PO (10:14)
[2016-08-07 11:15] LABS: ANION GAP 7 MEQ/L (5-15); AST (GOT) 17 U/L (15-37); BICARBONATE 28.1 MEQ/L (21.0-32.0); BLOOD UREA NITROGEN 14 MG/DL (7-18); CHLORIDE 102 MEQ/L (98-107); GLOMERULAR FILTRATION RATE 94 ML/MIN (>89); POTASSIUM 3.7 MEQ/L (3.5-5.1); SODIUM (NA) 137 MEQ/L (136-145)
[2016-08-07 11:18] LABS: ALKALINE PHOSPHATASE 58 U/L (45-117); ALT (GPT) 50 U/L (12-78); TOTAL BILIRUBIN ADULT 0.7 MG/DL (0.2-1.0)
[2016-08-07 12:00] VITALS: BP 151/63; PULSE 60; RESP 17; TEMP 97.6; O2SAT 96
[2016-08-07] MEDS ORDERED: TAMSULOSIN HCL 0.4 MG CAP PO SCH (12:30)
--- NOTE | 2016-08-07 12:40 | HHI.DCPOC ---
Discharge Care Plan Diagnosis: (1) TIA (transient ischemic attack) (2) Brain aneurysm Goals to Promote Your Health * To prevent worsening of your condition and complications * To maintain your health at the optimal level Directions to Meet Your Goals Take your medications as prescribed Follow your dietary instruction Follow activity as directed Keep your appointments as scheduled Take your immunizations and boosters as scheduled If your symptoms worsen call your PCP, if no PCP go to Urgent Care Center or Emergency Room Smoking is Dangerous to Your Health. Avoid second hand smoke Call the 24-hour hour crisis hotline for domestic abuse at Mis Baeza MD Aug 07, 2016 12:40
--- NOTE | 2016-08-07 12:41 | HHI.DS ---
Discharge Summary Admission Date Aug 05, 2016 at 22:18 Discharge Date: Aug 07, 2016 Admitting Diagnosis TIA (1) TIA (transient ischemic attack) ICD Code: G45.9 Diagnosis: Principal (2) Brain aneurysm ICD Code: I67.1 Diagnosis: Secondary Procedures See hospital course. Brief History - From Admission Written by Franca Argueta, acting as scribe for Dr. Hoffman on 08/06/16 at 01: 26. This is a 65-year-old male patient with past medical history which includes prostate cancer 3-4 years ago treated with radiation, hypertension, macular degeneration and glaucoma. Patient reports between 5:30 and 5:45pm on 08/05/2016 will he was sitting reading his Bible he began to feel right fascial numbness with burning. Patient also experienced blurring of his vision in his right eye and numbness/burning sensation to his right upper extremity. Patient endorses feeling lightheaded with mild chest discomfort during this episode. Patient reports the visual change, right upper extremity numbness/burning and lightheadedness and chest discomfort have spontaneously resolved. Patient does have continued mild right facial numbness. Patient denies focal weakness and there is no focal weakness on evaluation. Patient denies any recent fevers, cough, congestion, neck pain, abdominal pain, vomiting, diarrhea, double vision, difficulty with word finding ability, facial droop, or vertigo. Patient denies history of diabetes mellitus blood glucose on arrival was 108 CBC/BMP: 08/05/16 2000 08/07/16 1031 Significant Findings Laboratory Tests Test 08/05/16 08/07/16 08/07/16 20:00 06:41 10:31 Red Blood Count 4.42 MIL/MM3 (4.50-5.90) Hematocrit 38.6 % (39.0-51.0) Bedside Sodium 135 MMOL/L (138-146) Bedside Chloride 97 MMOL/L (98-109) Bedside Glucose 108 MG/DL (60-95) Troponin I LESS THAN 0.02 NG/ML (0.02-0.05) LDL Cholesterol 100 MG/DL (0-99) Random Glucose 124 MG/DL (74-106) Calcium Level 8.3 MG/DL (8.5-10.1) Imaging Last Impressions Neck CTA 08/06/16 Signed Impressions: Service Date/Time: Saturday, August 06, 2016 20:09 - CONCLUSION: The common carotid artery narrowing seen on the MRA is clearly artifactual. There is atherosclerotic disease but no two-dimensional stenosis is identified. There is a narrowing of the origin of both vertebral arteries. Roni Walker MD Head CTA 08/06/16 Signed Impressions: Service Date/Time: Saturday, August 06, 2016 20:09 - CONCLUSION: 1. 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 2. 2.9 x 3.6 mm aneurysm arising from the carotid T. on the right. 3. Mild atherosclerotic plaque involving the carotid bifurcations. Arnaldo Messer MD Neck Magnetic Resonance Angiography 08/05/162017 Signed Impressions: Service Date/Time: Friday, August 05, 2016 20:48 - CONCLUSION: 1. Soft tissue plaque with focal high-grade stenosis involving the proximal right common carotid artery. 2. There appears to be narrowing at the origin of the right vertebral artery Loi Rodriguez MD Head Magnetic Resonance Angiography 08/05/162017 Signed Impressions: Service Date/Time: Friday, August 05, 2016 20:48 - CONCLUSION: 1. 3 saccular aneurysms involving the distal right internal carotid artery as described above. Loi Rodriguez MD Brain MRI 08/05/162017 Signed Impressions: Service Date/Time: Friday, August 05, 2016 20:48 - CONCLUSION: Unremarkable MRI brain. Loi Rodriguez MD Head CT 08/05/16 Signed Impressions: Service Date/Time: Friday, August 05, 2016 20:02 - CONCLUSION: No acute intracranial disease. Loi Rodriguez MD Chest X-Ray 08/05/16 Signed Impressions: Service Date/Time: Friday, August 05, 2016 20:34 - CONCLUSION: No acute disease. Loi Rodriguez MD PE at Discharge GENERAL: in NAD SKIN: Warm and dry. HEAD: Normocephalic. EYES: No scleral icterus. No injection or drainage. NECK: Supple, trachea midline. No JVD or lymphadenopathy. CARDIOVASCULAR: Regular rate and rhythm without murmurs, gallops, or rubs. RESPIRATORY: Breath sounds equal bilaterally. No accessory muscle use. GASTROINTESTINAL: Abdomen soft, non-tender, nondistended. MUSCULOSKELETAL: No cyanosis, or edema. BACK: Nontender without obvious deformity. No CVA tenderness. Neuro: AAO X 3. CN 2-12 intact. 5/5 upper and lower ext strength. Sensation is intact. coordination. Pt update on day of discharge Follow-up for right facial numbness. Patient stated that resolved quickly 2 days ago. He is very anxious to go home. He stated that Dr. Boyd's saw him earlier and stated that he go home on the statin and aspirin. He also stated that he did not want him on Plavix. He also stated that Dr. Amezquita saw him earlier this morning saving was okay and he is good go home. Patient is asymptomatic. He is very anxious to go home. Hospital Course 65-year-old male with past medical history hypertension presented with right- sided facial paresthesia TIA -Due to symptoms of right-sided facial paresthesia that resolved quickly -CT scan of the head is negative. MR I of the head negative for any CVA. MRA of the head and neck showed soft tissue plaque with focal high-grade stenosis involving the proximal right common carotid artery, 3 saccular aneurysms involving the distal right internal carotid artery as described above. Based on MRA results vascular and neurosurgeon was consulted. CTA of neck was done which showed no carotid stenosis. -Patient was put on a statin. LDL 100. A 12 statin was increased to 40 mg at bedtime on the day of discharge. -Resume antihypertensive medication. -Patient was given a dose of aspirin and Plavix last night. CTA of the neck was done which didn't show any carotid stenosis and stated most likely MRA showed artifacts. Plavix was discontinued and nurse confirmed with Dr. Boyd. -Continue with baby aspirin, statin, and blood pressure control. Carotid aneurysm -Found on MRA 3 of him. Neurosurgeon consulted CTA was done showing 2.8 x 2.9mm aneurysm arising from the cavernous carotid on the right. 2. 2.9 x 3.6 mm aneurysm arising from the carotid T. on the right -No surgical indication. -Can continue to monitor as outpatient. Hypertension -Continue home medication. BPH -Continue with home medication. Pt Condition on Discharge: Good Discharge Disposition: Discharge Home Discharge Time: <= 30 minutes Discharge Instructions DIET: Follow Instructions for: Heart Healthy Diet Activities you can perform: Regular-No Restrictions Follow up Referrals: Neurology - 2 Weeks with Jermaine Boyd PhD MD PCP Follow-up - 1 Week New Medications: Atorvastatin (Lipitor) 40 Mg Tab 40 MG PO HS Cholesterol Management #[address] (Adult Aspirin EC Low Strength) 81 Mg Tabec 81 MG PO DAILY TIA #30 Ref 0 TAB Continued Medications: Alfuzosin Hcl (Alfuzosin Hcl Er) 10 Mg Tab 10 MG PO DAILY TAB Alprazolam (Xanax 0.5 mg) Alprazolam 0.5 mg Tab 1 TAB PO HS PRN ANXIETY TAB Artificial Tears (Tears Naturale) 15 Ml Soln 1 DROP EACH EYE DIRECTED ML Latanoprost (Xalatan) 0.005 % Konstantin 1 DROP RIGHT EYE HS KONSTANTIN Lisinopril/Hctz 10 mg/12.5 mg (Lisinopril/Hctz 10 mg/12.5 mg) 10 mg/12.5 mg Tab 1 TAB PO DAILY TAB Timolol Maleate (Ophth) (Timolol Maleate) 0.25 % Konstantin 1 DROP LEFT EYE DAILY KONSTANTIN Mis Baeza MD Aug 07, 2016 12:41
--- NOTE | 2016-08-07 14:15 | HM ---
Date Performed: 08/07/2016 Time Performed: 07:13:00 HOOKUP DATE: 08/07/16 07:13:00 AM [place] ANALYSIS START TIME: 08/07/2016 7:18:00 AM ANALYSIS END TIME: 08/08/2016 7:05:26 AM PATIENT AGE: 65 PATIENT HEIGHT PATIENT WEIGHT DRUG LIST PATIENT DIAGNOSIS: TIA TEST NARRATIVE: The patient's average heart rate was 56 BPM. No episodes of tachycardia wer e noted. Heart rates less than 50 BPM were noted 26% of the time. No pauses exceeding 2.0 second s were noted. 246 ventricular ectopics, which represented < 1% of the total beat count, were note d. The highest ventricular ectopic frequency occurred from 12:00 PM to 01:00 PM [place]. During this ti me 28 VE(s) occurred. Ventricular ectopics were observed as 234 isolated beat(s), as 3 couplet(s) an d as 2 run(s). 71 supraventricular ectopics, which represented < 1% of the total beat count, were noted. The highest supraventricular ectopic frequency occurred from 08:00 AM to 09:00 AM [place]. Duri ng this time 8 SVE(s) occurred. No episodes of ST depression (defined as -1.0 mm or more) were no fernando in channel 1. No episodes of ST depression (defined as -1.0 mm or more) were noted in channel 2. No episodes of ST depression (defined as -1.0 mm or more) were noted in channel 3. TEST INTERPRETATION: The patient was monitored for 23 hours and 43 minutes. The minimum heart r ate was 44 bpm, maximum heart rate was 103 and an average heart rate was 56 bpm. There were 234 PVCs , 3 ventricular couplets and 2 ventricular triplets as well as one 3-beat atrial run. Conclusions: T he Holter was notable for ectopy as described above. There is sustained atrial fibrillation or other dysrhythmias. Signed by : Shamir Doran
[2016-08-07] MEDS ORDERED: ATORVASTATIN 40 MG TAB PO SCH (21:00)
== END 2016-08-07 14:00 | disposition home or self-care (01) | DRG 68 ==
LOC: NEPE 19:16 → NEDA 22:18 → N05A 08-06 02:07
PROVIDERS: ADMIT Family Medicine; ATTEND Family Medicine
DX: I65.21 Occlusion and stenosis of right carotid artery (principal); I72.0 Aneurysm of carotid artery; J44.9 Chronic obstructive pulmonary disease, unspecified; I10 Essential (primary) hypertension; H35.30 Unspecified macular degeneration; H40.9 Unspecified glaucoma; F41.9 Anxiety disorder, unspecified; F32.9 Major depressive disorder, single episode, unspecified; K21.9 Gastro-esophageal reflux disease without esophagitis; G43.909 Migraine, unspecified, not intractable, without status migrainosus; F17.210 Nicotine dependence, cigarettes, uncomplicated; I44.0 Atrioventricular block, first degree; N40.0 Benign prostatic hyperplasia without lower urinary tract symptoms; Z85.46 Personal history of malignant neoplasm of prostate; Z92.3 Personal history of irradiation
CPT/HCPCS: 70450; 70496; 70498; 70544; 70548; 70551; 71010; 80053; 80061; 80307; 81001; 82435; 82550; 82565; 82947; 82948; 83036; 84132; 84295; 84484; 84520; 85025; 85384; 85610; 85730; 86850; 86900; 86901; 93005; 93225; 93226; 93306; 96360; 96361; A9579; J1644; J7030; Q9967

== ENCOUNTER 2017-07-01 23:19 | Emergency (ER) | payer OTHER ==
[~2017-07-01 23:19] MED LIST changes: +ASPI1TAB56 PO; -IBUP600 PO; +LIPI40TA PO
[2017-07-01 23:21] VITALS: BP 181/96; PULSE 80; RESP 21; TEMP 97.6; O2SAT 98
[2017-07-02 00:12] LABS: AUTOMATED NEUTROPHIL # 3.5 TH/MM3 (1.8-7.7); BASOPHIL % 0.7 % (0.0-2.0); EOSINOPHIL # 0.2 TH/MM3 (0-0.4); EOSINOPHIL % 2.5 % (0.0-4.0); HEMATOCRIT 39.7 % (39.0-51.0); HEMOGLOBIN 14.1 GM/DL (13.0-17.0); LYMPH % 33.6 % (9.0-44.0); LYMPHOCYTE # 2.1 TH/MM3 (1.0-4.8); MEAN CORPUSCULAR HGB CONC 35.6 % (32.0-36.0); MEAN PLATELET VOLUME 7.5 FL (7.0-11.0); MONO % 7.7 % (0.0-8.0); MONOCYTE # 0.5 TH/MM3 (0-0.9); NEUT % 55.5 % (16.0-70.0); PLATELET COUNT 196 TH/MM3 (150-450); RED BLOOD COUNT 4.56 MIL/MM3 (4.50-5.90); RED CELL DISTRIBUTION WIDTH 12.6 % (11.6-17.2); WHITE BLOOD COUNT 6.2 TH/MM3 (4.0-11.0)
[2017-07-02 00:24] LABS: BICARBONATE 27.7 MEQ/L (21.0-32.0); CALCIUM 8.8 MG/DL (8.5-10.1); CREATININE 0.78 MG/DL (0.60-1.30)
--- NOTE | 2017-07-02 01:03 | PD ---
HPI Chief Complaint: Complaint Time Seen by Provider: 23:30 Travel History International Travel<30 days: No Contact w/Intl Traveler<30days: No Traveled to known affect area: No History of Present Illness HPI Patient is a 66 year old male who comes in complaining of a clogged caldwell catheter. He says today he has only been passing blood. He complains of pain to his lower abdomen and penis. The catheter was placed last week due to inability to urinate. He says he was supposed to go tomorrow to the [place] to have it taken out. He denies fever, chills, back pain, nausea or vomiting. Severity is moderate. PFSH Past Medical History Hx Anticoagulant Therapy: Yes Arthritis: Yes Blood Disorders: No Anxiety: Yes Depression: Yes Cancer: Yes (PROSTATE) Cardiovascular Problems: Yes Chest Pain: Yes Diabetes: No Diminished Hearing: No Endocrine: No Gastrointestinal Disorders: Yes GERD: Yes Glaucoma: Yes Genitourinary: No Hepatitis: No Hiatal Hernia: No Hypertension: Yes Immune Disorder: No Implanted Vascular Access Dvce: Yes Musculoskeletal: No Neurologic: Yes Psychiatric: Yes (ANXIETY) Reproductive: No Respiratory: No Immunizations Current: Yes Migraines: Yes Radiation Therapy: Yes (PROSTATE) Thyroid Disease: No Past Surgical History Abdominal Surgery: Yes (MOE) Body Medical Devices: PLATE IN C SPINE, JULEE LLE Cholecystectomy: Yes Joint Replacement: Yes (RIGHT TOTAL HIP) Other Surgery: Yes Social History Alcohol Use: Yes (2 DRINKS/WK) Tobacco Use: Yes (1/2 PPD) Substance Use: No Allergies-Medications (Allergen,Severity, Reaction): Coded Allergies: codeine (Unverified Allergy, Severe, RASH/ITCHING, 07/01/17) Reported Meds & Prescriptions Reported Meds & Active Scripts Active Lipitor (Atorvastatin Calcium) 40 Mg Tab 40 Mg PO HS Adult Aspirin EC Low Strength (Aspirin) 81 Mg Tabec 81 Mg PO DAILY Reported Timolol Maleate 0.25 % Brii 1 Drop LEFT EYE DAILY Lisinopril/Hctz 10 mg/12.5 mg 10 mg/12.5 mg Tab 1 Tab PO DAILY Tears Naturale (Artificial Tears) 15 Ml Soln 1 Drop EACH EYE DIRECTED Alfuzosin Hcl Er (Alfuzosin HCl) 10 Mg Tab 10 Mg PO DAILY Xalatan (Latanoprost) 0.005 % Brii 1 Drop RIGHT EYE HS Xanax 0.5 mg (Alprazolam) Alprazolam 0.5 mg Tab 1 Tab PO HS PRN Review of Systems Except as stated in HPI: all other systems reviewed are Neg General / Constitutional: No: Fever, Chills HENT: No: Headaches, Lightheadedness Cardiovascular: No: Chest Pain or Discomfort Respiratory: No: Shortness of Breath Gastrointestinal: Positive: Abdominal Pain, No: Nausea, Vomiting Genitourinary: Positive: Hematuria Neurologic: No: Weakness, Dizziness Physical Exam Narrative GENERAL: Awake and alert, in no acute distress. SKIN: Focused skin assessment warm/dry. No wounds or signs of infection. HEAD: Atraumatic. Normocephalic. EYES: Pupils equal and round. No scleral icterus. EOMI. ENT: Mucous membranes pink and moist. NECK: Trachea midline. No JVD. CARDIOVASCULAR: Regular rate and rhythm. No murmur appreciated. RESPIRATORY: No accessory muscle use. Clear to auscultation. Breath sounds equal bilaterally. GASTROINTESTINAL: Abdomen soft, nondistended. Mild tenderness to the lower abdomen, no rebound or guarding. MUSCULOSKELETAL: No obvious deformities. No clubbing. No cyanosis. No edema. NEUROLOGICAL: Awake and alert. No obvious cranial nerve deficits. Motor grossly within normal limits. Normal speech. PSYCHIATRIC: Appropriate mood and affect; insight and judgment normal. Data Data Last Documented VS Vital Signs Date Time Temp Pulse Resp B/P (MAP) Pulse Ox O2 Delivery O2 Flow Rate FiO2 07/01/17 23:21 97.6 80 21 181/96 (124) 98 Orders Orders Complete Blood Count With Diff (07/01/17 23:49) Basic Metabolic Panel (Bmp) (07/01/17 23:49) Urinalysis - C+S If Indicated (07/01/17 23:49) Bladder/Catheter Irrigation (07/02/17 01:15) Lidocaine 2% Jelly (Xylocaine 2% Jelly) (07/02/17 02:00) Urine Culture (07/02/17 03:00) Labs Laboratory Tests Test 07/01/17 23:50 07/02/17 03:00 White Blood Count 6.2 TH/MM3 Red Blood Count 4.56 MIL/MM3 Hemoglobin 14.1 GM/DL Hematocrit 39.7 % Mean Corpuscular Volume 87.0 FL Mean Corpuscular Hemoglobin 31.0 PG Mean Corpuscular Hemoglobin Concent 35.6 % Red Cell Distribution Width 12.6 % Platelet Count 196 TH/MM3 Mean Platelet Volume 7.5 FL Neutrophils (%) (Auto) 55.5 % Lymphocytes (%) (Auto) 33.6 % Monocytes (%) (Auto) 7.7 % Eosinophils (%) (Auto) 2.5 % Basophils (%) (Auto) 0.7 % Neutrophils # (Auto) 3.5 TH/MM3 Lymphocytes # (Auto) 2.1 TH/MM3 Monocytes # (Auto) 0.5 TH/MM3 Eosinophils # (Auto) 0.2 TH/MM3 Basophils # (Auto) 0.0 TH/MM3 CBC Comment DIFF FINAL Differential Comment Blood Urea Nitrogen 11 MG/DL Creatinine 0.78 MG/DL Random Glucose 109 MG/DL Calcium Level 8.8 MG/DL Sodium Level 131 MEQ/L Potassium Level 3.7 MEQ/L Chloride Level 96 MEQ/L Carbon Dioxide Level 27.7 MEQ/L Anion Gap 7 MEQ/L Estimat Glomerular Filtration Rate 99 ML/MIN Urine Color LIGHT-YELLOW Urine Turbidity CLEAR Urine pH 7.5 Urine Specific [place] 1.001 Urine Protein NEG mg/dL Urine Glucose (UA) NEG mg/dL Urine Ketones NEG mg/dL Urine Occult Blood MOD Urine Nitrite NEG Urine Bilirubin NEG Urine Urobilinogen LESS THAN 2.0 MG/DL Urine Leukocyte Esterase MOD Urine RBC 2 /hpf Urine WBC 5 /hpf Urine Renal Epithelial Cells <1 /hpf Urine Bacteria RARE /hpf Microscopic Urinalysis Comment CATH-CULTURE IND MDM Medical Decision Making Medical Screen Exam Complete: Yes Emergency Medical Condition: Yes Medical Record Reviewed: Yes Differential Diagnosis clogged caldwell catheter vs UTI vs BPH Narrative Course Patient is a 66 year old male who comes in complaining of hematuria and painful/ decreased urination. Exam shows tenderness to the lower abdomen. Labs sent show no acute abnormalities. Bladder was irrigated with a large amount of blood clots put out. Caldwell catheter removed and patient was able to urinate. His urine cleared, free of any gross blood. He will be discharged home, advised to follow up with urology. Advised to return at any time for any worsening symptoms. Diagnosis Primary Impression: Hematuria Qualified Codes: R31.9 - Hematuria, unspecified Patient Instructions: General Instructions, Hematuria (ED) Additional Instructions: Follow up with urology. Return to the ED at any time for any worsening symptoms. Disposition: 01 DISCHARGE HOME Condition: Stable Oly Tovar MD July 02, 2017 01:03
[2017-07-02] MEDS ORDERED: LIDOCAINE 2% JELLY 30 ML TUBE TOPICAL ONE (02:00)
[2017-07-02 03:35] LABS: BACTERIA, URINE RARE /hpf; BILIRUBIN, URINE NEG (NEG); BLOOD, URINE MOD (NEG); GLUCOSE,URINE NEG (NEG); KETONE, URINE NEG (NEG); NITRITE,URINE NEG (NEG); PH, URINE 7.5 (5.0-8.5); RENAL EPITHELIAL CELLS <1 /hpf; URINE COLOR LIGHT-YELLOW (YELLW/STRAW); URINE LEUKOCYTE ESTERASE MOD (NEG)
== END 2017-07-02 04:24 | disposition home or self-care (01) ==
LOC: NEPE 23:19
DX: R31.9 Hematuria, unspecified (principal); I10 Essential (primary) hypertension; F17.210 Nicotine dependence, cigarettes, uncomplicated; Z85.46 Personal history of malignant neoplasm of prostate; Z88.5 Allergy status to narcotic agent; Z79.899 Other long term (current) drug therapy
CPT/HCPCS: 51700; 80048; 81001; 85025; 87086

== ENCOUNTER 2017-08-21 16:39 | Emergency (ER) | payer OTHER ==
[~2017-08-21] VITALS: Ht 177.8 cm; Wt 90.5 kg
[2017-08-21 16:49] VITALS: BP 161/73; PULSE 65; RESP 15; TEMP 98.2; O2SAT 99
--- NOTE | 2017-08-21 17:50 | PD ---
HPI Chief Complaint: Complaint Time Seen by Provider: 17:38 Travel History International Travel<30 days: No Contact w/Intl Traveler<30days: No Traveled to known affect area: No History of Present Illness HPI 66-year-old male with history of hypertension, CVA, prostate cancer who underwent radiation and now has to self cath due to strictures, presents emergency department for evaluation of hematuria. Patient had 4 episodes of acute hematuria today. He states this morning he had blood clots. He states that he voids on his own but does have to straight cath himself at times to prevent stricture recurrence. He tells me that he still feels like he has to void like there is something in there. He feels like he is meeting resistance with straight cathing himself. He denies any abdominal pain. He has no fever or chills. He has no other symptoms to report at this time. Patient's urologist is through the [place]. PFSH Past Medical History Hx Anticoagulant Therapy: Yes Arthritis: Yes Blood Disorders: No Anxiety: Yes Depression: Yes Cancer: Yes (PROSTATE) Cardiovascular Problems: Yes Chest Pain: Yes Diabetes: No Diminished Hearing: No Endocrine: No Gastrointestinal Disorders: Yes GERD: Yes Glaucoma: Yes Genitourinary: No Hepatitis: No Hiatal Hernia: No Hypertension: Yes Immune Disorder: No Implanted Vascular Access Dvce: Yes Medical other: Yes (PT SELF CATHS) Musculoskeletal: No Neurologic: Yes Psychiatric: Yes (ANXIETY) Reproductive: No Respiratory: No Immunizations Current: Yes Migraines: Yes Radiation Therapy: Yes (PROSTATE) Thyroid Disease: No Tetanus Vaccination: Unknown Influenza Vaccination: No Past Surgical History Abdominal Surgery: Yes (MOE) Body Medical Devices: PLATE IN C SPINE, JULEE LLE Cholecystectomy: Yes Joint Replacement: Yes (RIGHT TOTAL HIP) Other Surgery: Yes Social History Alcohol Use: Yes (2 DRINKS/WK) Tobacco Use: Yes (1/2 PPD) Substance Use: No Allergies-Medications (Allergen,Severity, Reaction): Coded Allergies: codeine (Unverified Allergy, Severe, RASH/ITCHING, 08/21/17) Reported Meds & Prescriptions Reported Meds & Active Scripts Active Bactrim DS (Sulfamethoxazole-Trimethoprim) 800-160 Mg Tab 1 Tab PO BID Lipitor (Atorvastatin Calcium) 40 Mg Tab 40 Mg PO HS Adult Aspirin EC Low Strength (Aspirin) 81 Mg Tabec 81 Mg PO DAILY Reported Timolol Maleate 0.25 % Brii 1 Drop LEFT EYE DAILY Lisinopril/Hctz 10 mg/12.5 mg 10 mg/12.5 mg Tab 1 Tab PO DAILY Tears Naturale (Artificial Tears) 15 Ml Soln 1 Drop EACH EYE DIRECTED Alfuzosin Hcl Er (Alfuzosin HCl) 10 Mg Tab 10 Mg PO DAILY Xalatan (Latanoprost) 0.005 % Brii 1 Drop RIGHT EYE HS Xanax 0.5 mg (Alprazolam) Alprazolam 0.5 mg Tab 1 Tab PO HS PRN Review of Systems Except as stated in HPI: all other systems reviewed are Neg Physical Exam Narrative GENERAL: Well-nourished male patient, in no acute distress. SKIN: Focused skin assessment warm/dry. HEAD: Atraumatic. Normocephalic. EYES: Pupils equal and round. No scleral icterus. No injection or drainage. ENT: No nasal bleeding or discharge. Mucous membranes pink and moist. NECK: Trachea midline. No JVD. CARDIOVASCULAR: Regular rate and rhythm. No murmur appreciated. RESPIRATORY: No accessory muscle use. Clear to auscultation. Breath sounds equal bilaterally. GASTROINTESTINAL: Abdomen soft, non-tender, nondistended. No guarding. No rebound tenderness hepatic and splenic margins not palpable. GENITOURINARY: Circumcised. Testes descended bilaterally without evidence of rotation. No lesions or erythema. No urethral discharge. MUSCULOSKELETAL: No obvious deformities. No clubbing. No cyanosis. No edema. NEUROLOGICAL: Awake and alert. No obvious cranial nerve deficits. Motor grossly within normal limits. Normal speech. PSYCHIATRIC: Appropriate mood and affect; insight and judgment normal. Data Data Last Documented VS Vital Signs Date Time Temp Pulse Resp B/P (MAP) Pulse Ox O2 Delivery O2 Flow Rate FiO2 08/21/17 16:49 98.2 65 15 161/73 (102) 99 Orders Orders Iv Access Insert/Monitor (08/21/17 17:44) Complete Blood Count With Diff (08/21/17 17:44) Basic Metabolic Panel (Bmp) (08/21/17 17:44) Coag Profile (08/21/17 17:44) Urinalysis - C+S If Indicated (08/21/17 17:44) Ct Abd/Pel W Iv Contrast(Rout) (08/21/17 ) Sodium Chlor 0.9% 1000 Ml Inj (Ns 1000 M (08/21/17 18:15) Urinary Catheter Management JOHNATHAN.Q8H (08/21/17 19:00) Urine Culture (08/21/17 18:45) Iohexol 350 Inj (Omnipaque 350 Inj) (08/21/17 19:38) Ed Discharge Order (08/21/17 20:46) Labs Laboratory Tests Test 08/21/17 18:10 08/21/17 18:45 White Blood Count 6.8 TH/MM3 Red Blood Count 4.36 MIL/MM3 Hemoglobin 13.5 GM/DL Hematocrit 39.3 % Mean Corpuscular Volume 90.1 FL Mean Corpuscular Hemoglobin 30.9 PG Mean Corpuscular Hemoglobin Concent 34.3 % Red Cell Distribution Width 12.8 % Platelet Count 196 TH/MM3 Mean Platelet Volume 8.1 FL Neutrophils (%) (Auto) 64.8 % Lymphocytes (%) (Auto) 24.8 % Monocytes (%) (Auto) 8.0 % Eosinophils (%) (Auto) 1.8 % Basophils (%) (Auto) 0.6 % Neutrophils # (Auto) 4.4 TH/MM3 Lymphocytes # (Auto) 1.7 TH/MM3 Monocytes # (Auto) 0.5 TH/MM3 Eosinophils # (Auto) 0.1 TH/MM3 Basophils # (Auto) 0.0 TH/MM3 CBC Comment DIFF FINAL Differential Comment Prothrombin Time 10.0 SEC Prothromb Time International Ratio 1.0 RATIO Activated Partial Thromboplast Time 24.6 SEC Blood Urea Nitrogen 15 MG/DL Creatinine 0.91 MG/DL Random Glucose 99 MG/DL Calcium Level 8.3 MG/DL Sodium Level 134 MEQ/L Potassium Level 3.7 MEQ/L Chloride Level 96 MEQ/L Carbon Dioxide Level 26.4 MEQ/L Anion Gap 12 MEQ/L Estimat Glomerular Filtration Rate 83 ML/MIN Urine Color Red Urine Turbidity CLOUDY Urine pH 6.0 Urine Specific [place] 1.009 Urine Protein 100 mg/dL Urine Glucose (UA) 50 mg/dL Urine Ketones NEG mg/dL Urine Occult Blood MOD Urine Nitrite NEG Urine Bilirubin NEG Urine Urobilinogen LESS THAN 2 mg/dL Urine Leukocyte Esterase NEG Urine RBC /hpf Urine WBC 7 /hpf Urine Bacteria FEW /hpf Urine Mucus FEW /lpf Microscopic Urinalysis Comment CATH-CULTURE IND MDM Medical Decision Making Medical Screen Exam Complete: Yes Emergency Medical Condition: Yes Medical Record Reviewed: Yes Differential Diagnosis Urinary retention versus UTI versus urethral stricture versus urethral trauma Narrative Course 66-year-old male presents emergency department for evaluation of acute hematuria today. Patient appears well. His vital signs are stable. Abdominal exam is benign. Laboratory Tests Test 08/21/17 18:10 08/21/17 18:45 White Blood Count 6.8 TH/MM3 Red Blood Count 4.36 MIL/MM3 Hemoglobin 13.5 GM/DL Hematocrit 39.3 % Mean Corpuscular Volume 90.1 FL Mean Corpuscular Hemoglobin 30.9 PG Mean Corpuscular Hemoglobin Concent 34.3 % Red Cell Distribution Width 12.8 % Platelet Count 196 TH/MM3 Mean Platelet Volume 8.1 FL Neutrophils (%) (Auto) 64.8 % Lymphocytes (%) (Auto) 24.8 % Monocytes (%) (Auto) 8.0 % Eosinophils (%) (Auto) 1.8 % Basophils (%) (Auto) 0.6 % Neutrophils # (Auto) 4.4 TH/MM3 Lymphocytes # (Auto) 1.7 TH/MM3 Monocytes # (Auto) 0.5 TH/MM3 Eosinophils # (Auto) 0.1 TH/MM3 Basophils # (Auto) 0.0 TH/MM3 CBC Comment DIFF FINAL Differential Comment Prothrombin Time 10.0 SEC Prothromb Time International Ratio 1.0 RATIO Activated Partial Thromboplast Time 24.6 SEC Blood Urea Nitrogen 15 MG/DL Creatinine 0.91 MG/DL Random Glucose 99 MG/DL Calcium Level 8.3 MG/DL Sodium Level 134 MEQ/L Potassium Level 3.7 MEQ/L Chloride Level 96 MEQ/L Carbon Dioxide Level 26.4 MEQ/L Anion Gap 12 MEQ/L Estimat Glomerular Filtration Rate 83 ML/MIN Urine Color Red Urine Turbidity CLOUDY Urine pH 6.0 Urine Specific [place] 1.009 Urine Protein 100 mg/dL Urine Glucose (UA) 50 mg/dL Urine Ketones NEG mg/dL Urine Occult Blood MOD Urine Nitrite NEG Urine Bilirubin NEG Urine Urobilinogen LESS THAN 2 mg/dL Urine Leukocyte Esterase NEG Urine RBC /hpf Urine WBC 7 /hpf Urine Bacteria FEW /hpf Urine Mucus FEW /lpf Microscopic Urinalysis Comment CATH-CULTURE IND Last Impressions Abdomen/Pelvis CT 08/21/17 0000 Signed Impressions: CONCLUSION: No evidence of acute abdominal or pelvic process. No masses are identified. Di verticulosis without evidence of diverticulitis. Urine output is clear now with Krause inserted.Patient will be discharged home with Krause catheter in place. He is instructed to contact his urologist Thursday to follow-up. He agrees to return immediately with acute worsening symptoms. Diagnosis Primary Impression: Hematuria Qualified Codes: R31.9 - Hematuria, unspecified Additional Impression: Urinary retention Referrals: Primary Care Physician Urologist Patient Instructions: Acute Hematuria (DC), Krause Catheter Placement and Care ( ED), General Instructions Additional Instructions: Follow-up with a primary care provider Contact your urologist on Thursday. Let him know you have a Krause catheter in and need follow-up to have it removed Return immediately to the emergency department with acute worsening symptoms Med/Other Pt SpecificInfo: Prescription(s) given Scripts Sulfamethoxazole-Trimethoprim (Bactrim DS) 800-160 Mg Tab 1 TAB PO BID for Infection, #14 TAB 0 Refills Prov: Zoya Leahy 08/21/17 Disposition: DISCHARGE HOME Condition: Stable Zoya Leahy Aug 21, 2017 17:50
[2017-08-21] MEDS ORDERED: SODIUM CHLOR 0.9% 1000 ML INJ 1,000 ML IV ONE (18:15)
[2017-08-21 18:24] LABS: AUTOMATED NEUTROPHIL # 4.4 TH/MM3 (1.8-7.7); BASOPHIL % 0.6 % (0.0-2.0); EOSINOPHIL # 0.1 TH/MM3 (0-0.4); EOSINOPHIL % 1.8 % (0.0-4.0); HEMATOCRIT 39.3 % (39.0-51.0); HEMOGLOBIN 13.5 GM/DL (13.0-17.0); LYMPH % 24.8 % (9.0-44.0); LYMPHOCYTE # 1.7 TH/MM3 (1.0-4.8); MEAN CELL VOLUME 90.1 FL (80.0-100.0); MEAN CORPUSCULAR HEMOGLOBIN 30.9 PG (27.0-34.0); MEAN CORPUSCULAR HGB CONC 34.3 % (32.0-36.0); MEAN PLATELET VOLUME 8.1 FL (7.0-11.0); MONOCYTE # 0.5 TH/MM3 (0-0.9); NEUT % 64.8 % (16.0-70.0); PLATELET COUNT 196 TH/MM3 (150-450); RED BLOOD COUNT 4.36 MIL/MM3 (4.50-5.90); RED CELL DISTRIBUTION WIDTH 12.8 % (11.6-17.2); WHITE BLOOD COUNT 6.8 TH/MM3 (4.0-11.0)
[2017-08-21 18:56] LABS: BICARBONATE 26.4 MEQ/L (21.0-32.0); CALCIUM 8.3 MG/DL (8.5-10.1); CREATININE 0.91 MG/DL (0.60-1.30)
[2017-08-21 19:16] LABS: BACTERIA, URINE FEW /hpf; BILIRUBIN, URINE NEG (NEG); BLOOD, URINE MOD (NEG); GLUCOSE,URINE 50 mg/dL (NEG); KETONE, URINE NEG (NEG); MUCUS URINE FEW /lpf (OCC); NITRITE,URINE NEG (NEG); URINE COLOR Red (YELLW/STRAW); URINE LEUKOCYTE ESTERASE NEG (NEG)
[2017-08-21] MEDS ORDERED: IOHEXOL 350 MG/ML 10 ML VIAL (for RAD DIAG) IVCONTRAST ONE (19:38)
--- NOTE | 2017-08-21 20:37 | RADRPT ---
EXAM DATE: 08/21/2017 7:35 PM EDT AGE/SEX: 66 years / Male INDICATIONS: Hematuria, blood clots in urine. CLINICAL DATA: This is the patient's initial encounter. Patient reports that signs and symptoms have been present for 1 day and indicates a pain score of 0/10. MEDICAL/SURGICAL HISTORY: Carcinoma, prostatic. Cardiovascular disease. Hypertension. Cholecy stectomy. ORAL CONTRAST: No oral contrast ingested. RADIATION DOSE: 7.44 CTDI (mGy) COMPARISON: No prior exams available for comparison. TECHNIQUE: Multiple contiguous axial images were obtained through the abdomen and pelvis following b olus infusion of 75 ml Omnipaque 350 (iohexol) nonionic water-soluble contrast as a single exam dos e. No oral contrast ingested. Using automated exposure control and adjustment of the mA and/or kV ac cording to patient size, radiation dose was kept as low as reasonably achievable to obtain optimal di agnostic quality images. DICOM format image data is available electronically for review and comparis on. FINDINGS: There is linear atelectasis versus scar on the right. There is eventration of the right hemidiaphragm . The liver and spleen are normal in size and no focal defects are identified. Multiple calcified gr anulomas are present in the spleen. The gallbladder is absent. The pancreas demonstrates normal conto ur without evidence of mass or ductal dilatation. The adrenal glands and kidneys appear normal bilate rally. No hydronephrosis or mass lesions are identified. There is diverticulosis without evidence of diverticulitis. A Krause catheter is present within the urinary bladder. There is increased density i n the dependent portion the bladder which may reflect blood clots. No pelvic adenopathy is identified . CONCLUSION: No evidence of acute abdominal or pelvic process. No masses are identified. Diverticulosis without e vidence of diverticulitis. Electronically signed by: Landon Banerjee MD 08/21/2017 8:36 PM EDT
[2017-08-21 20:45] VITALS: BP 134/75; PULSE 65; RESP 20; O2SAT 97
[2017-08-21] MEDS ORDERED: BACT800T5 PO (20:53)
[2017-08-21] MEDS ORDERED: PHENAZOPYRIDINE HCL 200 MG TAB PO ONE (21:45)
== END 2017-08-21 22:00 | disposition home or self-care (01) ==
LOC: NEPC 16:39
DX: R31.9 Hematuria, unspecified (principal); R33.9 Retention of urine, unspecified; I10 Essential (primary) hypertension; F17.200 Nicotine dependence, unspecified, uncomplicated; Z85.46 Personal history of malignant neoplasm of prostate
CPT/HCPCS: 51703; 74177; 80048; 81001; 85025; 85610; 85730; 87086; 99284; J7030; Q9967

== ENCOUNTER 2017-08-21 23:21 | Emergency (ER) | payer OTHER ==
[~2017-08-21] VITALS: Ht 177.8 cm; Wt 90.0 kg
[~2017-08-21 23:21] MED LIST changes: +BACT800T5 PO
[2017-08-21 23:26] VITALS: BP 226/110; PULSE 100; RESP 16; TEMP 97.6; O2SAT 100
--- NOTE | 2017-08-21 23:57 | PD ---
HPI Chief Complaint: Complaint Time Seen by Provider: 23:32 Travel History International Travel<30 days: No Contact w/Intl Traveler<30days: No Traveled to known affect area: No History of Present Illness HPI 66-year-old white male presents emergency department second time today for a acute urinary obstruction. Patient has had a history of a urethral stricture in the past and self caths himself nearly on a daily basis to maintain patency of his stricture. The patient states that he had not self cath in several days up until just recently. He has had some hematuria followed by inability to urinate earlier today. His 14 [place] catheter was replaced with a 16 [place]. The patient's obstruction was relieved and she was sent home. The patient once again returns with acute onset of urinary obstruction, abdominal pain and discomfort. Symptoms were moderate to severe. PFSH Past Medical History Hx Anticoagulant Therapy: Yes Arthritis: Yes Blood Disorders: No Anxiety: Yes Depression: Yes Cancer: Yes (PROSTATE) Cardiovascular Problems: Yes Chest Pain: Yes Diabetes: No Diminished Hearing: No Endocrine: No Gastrointestinal Disorders: Yes GERD: Yes Glaucoma: Yes Genitourinary: No Hepatitis: No Hiatal Hernia: No Hypertension: Yes Immune Disorder: No Implanted Vascular Access Dvce: Yes Musculoskeletal: No Neurologic: Yes Psychiatric: Yes (ANXIETY) Reproductive: No Respiratory: No Immunizations Current: Yes Migraines: Yes Radiation Therapy: Yes (PROSTATE) Thyroid Disease: No Past Surgical History Abdominal Surgery: Yes (MOE) Body Medical Devices: PLATE IN C SPINE, JULEE LLE Cholecystectomy: Yes Joint Replacement: Yes (RIGHT TOTAL HIP) Other Surgery: Yes Social History Alcohol Use: Yes (2 DRINKS/WK) Tobacco Use: Yes (1/2 PPD) Substance Use: No Allergies-Medications (Allergen,Severity, Reaction): Coded Allergies: codeine (Unverified Allergy, Severe, RASH/ITCHING, 08/21/17) Reported Meds & Prescriptions Reported Meds & Active Scripts Active Bactrim DS (Sulfamethoxazole-Trimethoprim) 800-160 Mg Tab 1 Tab PO BID Lipitor (Atorvastatin Calcium) 40 Mg Tab 40 Mg PO HS Adult Aspirin EC Low Strength (Aspirin) 81 Mg Tabec 81 Mg PO DAILY Reported Timolol Maleate 0.25 % Brii 1 Drop LEFT EYE DAILY Lisinopril/Hctz 10 mg/12.5 mg 10 mg/12.5 mg Tab 1 Tab PO DAILY Tears Naturale (Artificial Tears) 15 Ml Soln 1 Drop EACH EYE DIRECTED Alfuzosin Hcl Er (Alfuzosin HCl) 10 Mg Tab 10 Mg PO DAILY Xalatan (Latanoprost) 0.005 % Brii 1 Drop RIGHT EYE HS Xanax 0.5 mg (Alprazolam) Alprazolam 0.5 mg Tab 1 Tab PO HS PRN Review of Systems Except as stated in HPI: all other systems reviewed are Neg General / Constitutional: No: Fever, Chills HENT: No: Headaches, Sore Throat Cardiovascular: No: Chest Pain or Discomfort, Tachycardia Respiratory: No: Cough, Shortness of Breath Gastrointestinal: Positive: Abdominal Pain, No: Nausea, Vomiting Genitourinary: Positive: Hematuria, Decreased Urinary Output Musculoskeletal: No: Myalgias, Limited ROM Skin: No Rash, No Itching Physical Exam Narrative GENERAL: This is a well-nourished, well-developed patient, in Moderate distress secondary to Obstruction SKIN: No rashes, ecchymoses or lesions. Warm and dry. HEAD: Atraumatic. Normocephalic. EYES: PERRL, EOMI, no discharge or injection. No scleral icterus. EARS: Clear NOSE: Nasal turbinates appear normal. THROAT: Mucosa pink and moist. Airway patent. NECK: Trachea midline. supple, moves head freely. LUNGS: Clear to auscultation. CV: Regular in rhythm. ABDOMEN: Soft nontender lower abdomen in the area of the bladder mild distention . EXT: No clubbing cyanosis or edema. Changes Data Data Last Documented VS Vital Signs Date Time Temp Pulse Resp B/P (MAP) Pulse Ox O2 Delivery O2 Flow Rate FiO2 08/22/17 00:41 08/21/17 23:26 97.6 100 16 100 Room Air Orders Orders Urinary Catheter Insert/Apply (08/22/17 02:14) Ed Discharge Order (08/22/17 04:20) [place] Medical Decision Making Medical Screen Exam Complete: Yes Emergency Medical Condition: Yes Medical Record Reviewed: Yes Differential Diagnosis Differential diagnosis: Bladder outlet obstruction, urethral stricture, false passage, UTI Narrative Course Patient's Krause has been irrigated. He has had 700 cc of red colored urine. He has now flowing light yellow urine after draining his bladder. Patient is drinking fluids. He is feeling improved. At time of discharge the patient complained of obstructive flow again. The patient's catheter was changed to 18. He has consumed a large amount of water and his urine is flowing freely. The patient has been up and ambulatory and feels improved. The patient is comfortable going home now.He is medically stable for discharge. Diagnosis Primary Impression: Acute urinary tension Patient Instructions: General Instructions Additional Instructions: Force fluids keep your urine clear. Follow-up with your urologist next week. Return to the ER over the weekend if any problems. Med/Other Pt SpecificInfo: No Meds Exist/No RX given Disposition: 01 DISCHARGE HOME Condition: Stable Chirag Viera Aug 21, 2017 23:57
== END 2017-08-22 04:40 | disposition home or self-care (01) ==
LOC: NEPD 23:21
DX: N35.9 Urethral stricture, unspecified (principal); F17.200 Nicotine dependence, unspecified, uncomplicated
CPT/HCPCS: 51702